=== PATIENT | male | born 1995 | race Caucasian/White ===

== ENCOUNTER 2019-08-15 23:12 | Emergency (ER) | payer BC, SELFPAY ==
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
[2019-08-15 23:40] VITALS: BP 126/96; PULSE 83; RESP 20; TEMP 36.4; O2SAT 100
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
[2019-08-16 02:05] LABS: Amphetamine Screen Urine Negative (Negative); Barbiturate Screen Urine Negative (Negative); Benzodiazepines Screen Urine Negative (Negative); Cannabinoid Screen Urine Positive (Negative); Cocaine Screen Urine Negative (Negative); Methadone Screen Urine Negative (Negative); Opiate Screen Urine Negative (Negative); Phencyclidine Screen Urine Negative (Negative)
[2019-08-16] MEDS: LORAZEPAM 0.5 MG TABLET PO (02:53)
[2019-08-16 03:01] VITALS: BP 123/67; PULSE 81; RESP 16; TEMP 37; O2SAT 100
[2019-08-16 03:07] LABS: Add Urine Microscopic? YES; Appearance Urine Clear (Clear); Bacteria Urine Trace /hpf; Bilirubin Urine Negative (Negative); Blood Urine Negative (Negative); Color Urine Yellow (Yellow); Glucose Urine UA Negative (Negative); Ketones Urine Negative (Negative); Leukocyte Esterase Ur Negative LEU/UL (Negative); Mucus Urine Moderate /lpf; Nitrate Urine Negative (Negative); Protein Urine 1+ mg/dL (Negative); RBC Urine 0-2 /hpf (0-2); Specific Grav Ur 1.027 (1.001-1.035); Urobilinogen Urine Negative mg/dL (<2.0); WBC Urine 0-3 /hpf
== END 2019-08-16 03:02 | disposition home or self-care (01) ==
PROVIDERS: Emergency Provider Emergency Medicine
DX: N50.82 Scrotal pain (principal); K21.9 Gastro-esophageal reflux disease without esophagitis
CPT/HCPCS: 76870; 80307; 81001; 93976; 99281; 99284; A9270

== ENCOUNTER 2019-08-28 13:24 | Emergency (ER) | payer BC, SELFPAY ==
[2019-08-28 13:51] VITALS: BP 136/71; PULSE 72; RESP 18; TEMP 37; O2SAT 100
--- NOTE | 2019-08-28 17:00 | ED.GENADULT ---
HPI - General Adult General Chief complaint: Unspecified <Jeffrey Moreira PA-C - Last Filed: 08/28/19 17:03> Stated complaint: headache <Jeffrey Moreira PA-C - Last Filed: 08/28/19 17:03> Time Seen by Provider: 08/28/19 16:14 <Jeffrey Moreira PA-C - Last Filed: 08/28/19 17:03> Source: patient <Jeffrey Moreira PA-C - Last Filed: 08/28/19 17:03> Mode of arrival: ambulatory <Jeffrey Moreira PA-C - Last Filed: 08/28/19 17:03> Limitations: no limitations <Jeffrey Moreira PA-C - Last Filed: 08/28/19 17:03> History of Present Illness HPI narrative: Patient is a [id number] male who presents to emergency department noting chronic low back pain managed by primary care for which he has been taking Flexeril patient notes that he is also chronically on Xanax prescribed by his psychiatrist patient with longstanding psychiatric issue and chronic pain for which she has been on Xanax patient went to outside hospital 1 day ago had negative imaging of the low back patient has also done physical therapy for this. On arrival patient requesting refill of narcotics for which he has run out. Patient denies any suicidal or homicidal ideation <Jeffrey Moreira PA-C - Last Filed: 08/28/19 17:03> Related Data Home medications: Home Medications Medication Instructions Recorded Confirmed levetiracetam 500 mg PO BID 09/19/19 <Jeffrey Moreira PA-C - Last Filed: 08/28/19 17:03> Allergies/adverse reactions: Allergies Allergy/AdvReac Type Severity Reaction Status Date / Time Cat Dander Allergy Unknown Unknown Uncoded 09/19/19 18:46 MOLD Allergy Unknown Unknown Uncoded 09/19/19 18:46 <Jeffrey Moreira PA-C - Last Filed: 08/28/19 17:03> Review of Systems Review of Systems: All systems reviewed & are unremarkable except as noted in HPI and below <Jeffrey Moreira PA-C - Last Filed: 08/28/19 17:03> PMFSH Past Medical History Medical History: Medical History Anxiety Depression GERD (gastroesophageal reflux disease) Hx of seizure disorder <Jeffrey Moreira PA-C - Last Filed: 08/28/19 17:03> Surgical History Surgical History: Surgical History History of placement of ear tubes <Jeffrey Moreira PA-C - Last Filed: 08/28/19 17:03> Social History Social History: Social History Smoking status: Smoker, status unknown Gender identity (if verbalized by the patient): Male <Jeffrey Moreira PA-C - Last Filed: 08/28/19 17:03> Exam Narrative: Exam Narrative: GENERAL: Well-appearing, well-nourished, and in no acute distress. HEAD: Normocephalic, atraumatic. EYES: PERRLA and EOMI. ENT: Nares clear, no rhinorrhea or epistaxis. Mucous membranes moist. CHEST: Clear to auscultation. No respiratory distress. No wheezes rales or rhonchi HEART: Regular rate and rhythm. No murmur heard. EXTREMITIES: Normal range of motion. No edema. SKIN: Warm, dry, no rash. NEURO: No focal deficits. Alert and oriented x3. Cranial nerves II through XII grossly intact. Normal speech and gait PSYCH: Normal mood and affect. <Jeffrey Moreira PA-C - Last Filed: 08/28/19 17:03> Course Course Emergency Course: Patient in the room in no distress aware of case findings treatment plan and diagnosis <Jeffrey Moreira PA-C - Last Filed: 08/28/19 17:03> Vital Signs Vital signs: Vital Signs Temperature 37.0 C 08/28/19 13:51 Pulse Rate 72 08/28/19 13:51 Respiratory Rate 18 08/28/19 13:51 Blood Pressure 136/71 08/28/19 13:51 Pulse Oximetry 100 08/28/19 13:51 Temperature 37.0 C 08/28/19 13:51 Pulse Rate 72 08/28/19 13:51 Respiratory Rate 18 08/28/19 13:51 Blood Pressure 136/71 08/28/19 13:51 Pulse Oximetry 100 08/28/19 13:51 <Jeffrey Moreira PA-C - Last Filed:
[2019-08-28] MEDS: LORAZEPAM 0.5 MG TABLET PO (17:11)
== END 2019-08-28 17:28 | disposition home or self-care (01) ==
PROVIDERS: Emergency Provider Emergency Medicine; PCP Chiropractor
DX: M54.5 Low back pain (principal); F41.9 Anxiety disorder, unspecified; F32.9 Major depressive disorder, single episode, unspecified; K21.9 Gastro-esophageal reflux disease without esophagitis; G40.909 Epilepsy, unspecified, not intractable, without status epilepticus; G89.29 Other chronic pain
CPT/HCPCS: 99283; A9270

== ENCOUNTER 2019-09-19 18:40 | Emergency (ER) | payer BC, SELFPAY ==
--- NOTE | ~2019-09-19 | US_ITS ---
US scrotum doppler DATE: 09/19/2019 20:24 INDICATION: Penile pain radiating to testicles since catheterization 2 weeks ago TECHNIQUE: Real-time imaging and color flow imaging of the scrotal contents COMPARISON: 08/26/2019 screening whole ultrasound FINDINGS: The testicles are homogeneous and symmetric in echotexture, with normal symmetric color keila w signal and normal Doppler signal. No testicular mass lesion or torsion is evident. The epididymis appears normal bilaterally. No hydroceles. Mild varicocele is suggested on the left. IMPRESSION: Normal testicles Mild left varicocele Reviewed, dictated and finalized at [facility]. Reviewed, dictated and finalized at location [facility].
--- NOTE | ~2019-09-19 | CT_ITS ---
EXAMINATION: CT abdomen pelvis w con DATE: 09/19/2019 20:30 INDICATION: Lower abdominal pain, testicular pain TECHNIQUE: Computed tomography (CT) of the abdomen and pelvis was performed with 100 cc Omnipaque 350 intravenous contrast. Automated exposure control and iterative reconstruction technique were employe d. Exam dose: 242.00 mGy-cm total exam DLP. COMPARISON: None. FINDINGS: The lung bases are clear. Normal heart size. No pericardial or pleural effusion. The liver, gallbladder, bile ducts, pancreas, pancreatic duct, spleen, and adrenal glands and kidneys are unremarkable. Normal caliber of the abdominal aorta. No intraperitoneal or retroperitoneal or pelvic mass lesion or adenopathy or ascites. The urinary kim dder is unremarkable. Normal appendix. No bowel obstruction or intraperitoneal free air. No acute skeletal finding. IMPRESSION: No significant abnormality Reviewed, dictated and finalized at [facility]. Reviewed, dictated and finalized at [facility]. IMPRESSION: No significant abnormality
[2019-09-19 18:48] VITALS: BP 113/63; PULSE 74; RESP 16; TEMP 37.1; O2SAT 100
--- NOTE | 2019-09-19 19:43 | ED.MALEGU ---
HPI - Male Genitourinary General Chief complaint: Urogenital-Male Stated complaint: penis pain Time Seen by Provider: 09/19/19 19:38 Source: patient Mode of arrival: EMS Limitations: no limitations History of Present Illness HPI Narrative: A 24 y/o male presents to the ED, via EMS, with c/o dysuria. Pt states that the dysuria started today while he was at work. He notes that he had a straight catheter placed 2 weeks ago to get urine to give a urine sample. Pt adds that he did not have any pain after the catheter until today. He reports testicular pain, nausea, and lower ABD pain, but denies hematuria, vomiting, and penile discharge. Pt is not sexually active. He has a PMHx of seizures and takes Keppra daily. MD Complaint: dysuria Onset (ago): hour(s) (Today) Context: other (Recent catheter) Associated symptoms: Reports nausea/vomiting and other (Testicular pain, lower ABD pain) Related Data Home Medications Medication Instructions Recorded Confirmed levetiracetam 500 mg PO BID 09/19/19 Allergies Allergy/AdvReac Type Severity Reaction Status Date / Time Cat Dander Allergy Unknown Unknown Uncoded 09/19/19 18:46 MOLD Allergy Unknown Unknown Uncoded 09/19/19 18:46 Review of Systems Review of Systems: All systems reviewed & are unremarkable except as noted in HPI and below Gastrointestinal: Gastrointestinal: Reports abdominal pain (Lower), Reports nausea and Denies vomiting Genitourinary: Genitourinary: Denies hematuria, Reports dysuria, Denies penile discharge and Reports testicular pain PMFSH Past Medical History Medical History Anxiety Depression GERD (gastroesophageal reflux disease) Hx of seizure disorder Surgical History Surgical History History of placement of ear tubes Social History Social History Smoking status: Smoker, status unknown Gender identity (if verbalized by the patient): Male Exam Narrative: Exam Narrative: General appearance: Well-developed, well-nourished Skin: Normal color Head: Normocephalic, nontraumatic Eyes: Clear conjunctiva ENT: Oropharynx normal, ears normal, nose normal Neck: Supple, nontender Chest and respiratory: Airway patent, no respiratory distress, no accessory muscle use Heart: Regular rate/rhythm Abdomen: Soft, diffuse tenderness lower abdomen bilaterally, positive guarding, no rebound no organomegaly, quiet bowel sounds, diffuse tenderness of the testicles bilaterally, no mass, no swelling or rash Vascular: Normal peripheral pulses, normal capillary refill. 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 My concern is the differential diagnosis at the bottom. Labs, CT abdomen and pelvis with IV contrast, testicular ultrasound ordered. Further plan to follow Differential Diagnosis Differential diagnosis: Likely urinary tract infection, urethritis, epidid
[2019-09-19 19:49] LABS: Add Urine Microscopic? YES; Appearance Urine Cloudy (Clear); Bacteria Urine Trace /hpf; Bilirubin Urine Negative (Negative); Blood Urine Negative (Negative); Color Urine Straw (Yellow); Glucose Urine UA Negative (Negative); Ketones Urine Negative (Negative); Leukocyte Esterase Ur Negative LEU/UL (Negative); Mucus Urine Rare /lpf; Nitrate Urine Negative (Negative); Protein Urine Negative (Negative); Specific Grav Ur 1.018 (1.001-1.035); Urobilinogen Urine Negative mg/dL (<2.0); WBC Urine 0-3 /hpf
[2019-09-19 20:13] LABS: Basophils Percent Auto 0.1 % (0.2-1.2); Eosinophils Absolute Auto 0.2 K/mm3 (0-0.3); Eosinophils Percent Auto 2.2 % (0-4.4); Hematocrit 43.1 % (42.0-52.0); Hemoglobin 14.2 g/dL (14.0-18.0); Immature Granulocyte Absolute 0.01 K/mm3 (0.00-0.031); Immature Granulocyte Percent A 0.1 % (0-0.5); Lymphocytes Absolute Auto 2.63 K/mm3 (0.9-3.2); Lymphocytes Percent Auto 38.6 % (18.3-44.2); Mean Corpuscular HGB Conc 32.9 g/dl (32-36); Mean Corpuscular Hemoglobin 31.3 pg (26-34); Mean Corpuscular Volume 95.1 fl (80-100); Monocytes Absolute Auto 0.6 K/mm3 (0.1-0.6); Monocytes Percent Auto 8.5 % (2.6-8.5); Neutrophils Absolute Auto 3.4 K/mm3 (1.3-6.7); Neutrophils Percent Auto 50.5 % (45.5-73.1); Platelet Count Result 182 k/mm3 (150-375); Red Blood Count 4.53 M/mm3 (4.6-6.20); White Blood Count 6.8 K/mm3 (4.5-10.0)
[2019-09-19 20:25] LABS: Estimated CRCL calculation 120 ml/min; Estimated Glomerular Filt Rate > 60
[2019-09-19 20:26] LABS: Alanine Aminotransferase 21 U/L (4-50); Albumin Level 4.2 g/dL (3.5-5.1); Alkaline Phosphatase 69 U/L (38-126); Aspartate Amino Transferase 24 U/L (17-59); Bilirubin,Total 0.2 mg/dL (0.2-1.3); Blood Urea Nitrogen 24 mg/dL (9-20); Calcium 9.2 mg/dL (8.4-10.2); Carbon Dioxide 25 mmol/L (22-30); Chloride 105 mmol/L (98-107); Estimated CRCL calculation 133 ml/min; Estimated Glomerular Filt Rate > 60; Glucose 92 mg/dL (75-110); Lipase 112 U/L (23-300); Potassium 3.6 mmol/L (3.4-5.0); Sodium 139 mmol/L (137-145)
[2019-09-19] MEDS: KETOROLAC 30 MG/ML VIAL (*BKC) IV PUSH (20:36)
[2019-09-19] MEDS: LORAZEPAM 0.5 MG TABLET 1 MG PO (21:49)
== END 2019-09-19 21:50 | disposition home or self-care (01) ==
PROVIDERS: Emergency Provider Emergency Medicine; PCP Chiropractor
DX: N50.82 Scrotal pain (principal); N50.812 Left testicular pain; R10.30 Lower abdominal pain, unspecified; G40.909 Epilepsy, unspecified, not intractable, without status epilepticus; K21.9 Gastro-esophageal reflux disease without esophagitis; I86.1 Scrotal varices
CPT/HCPCS: 36415; 74177; 76870; 80053; 81001; 83690; 85025; 93976; 96374; 99284; A9270; J1885; Q9967

== ENCOUNTER 2020-11-01 15:31 | Emergency (ER) | payer BC, SELFPAY ==
--- NOTE | ~2020-11-01 | CT_ITS ---
EXAMINATION: CT brain wo con EXAM DATE: 11/01/2020 16:51 INDICATION: Head injury without loss of consciousness. TECHNIQUE: Spiral CT of the head was performed without contrast. Axial, coronal and sagittal images were reviewed. The dose-length product (DLP) for this examination was 605.33 mGy-cm. The exposure w as tailored according to patient size, and iterative reconstruction (ASIR) was used as additional dos e reduction technique. Comparison is made to prior examination from 03/21/2016. FINDINGS: There is no acute intraparenchymal hemorrhage. No evidence of intraparenchymal brain mass lesion. No evidence of acute infarction. There is no mass effect or midline shift. The ventricles are normal in size. There are no extra-axial collections. There are no acute calvarial fractures. T he orbits are unremarkable. Soft tissue is unremarkable. The visualized sinuses and mastoid air radha ls are well aerated. IMPRESSION: 1. No acute intracranial findings. Reviewed, dictated and finalized at location [facility].
[2020-11-01 15:40] VITALS: BP 128/80; PULSE 63; RESP 17; TEMP 36.3; O2SAT 100
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
== END 2020-11-01 17:36 | disposition home or self-care (01) ==
PROVIDERS: Emergency Provider Emergency Medicine; PCP Internal Medicine Gastroenterology
DX: S06.0X0A Concussion without loss of consciousness, initial encounter (principal); G40.909 Epilepsy, unspecified, not intractable, without status epilepticus; K21.9 Gastro-esophageal reflux disease without esophagitis; Y04.0XXA Assault by unarmed brawl or fight, initial encounter
CPT/HCPCS: 70450; 99284

== ENCOUNTER 2020-12-11 12:03 | Emergency (ER) | payer BC, SELFPAY ==
--- NOTE | 2020-12-11 12:07 | ED.GENADULT ---
HPI - General Adult General Chief complaint: Recheck/Abnormal Lab/Rx Stated complaint: refill Time Seen by Provider: 12/11/20 12:07 Source: patient and RN notes reviewed Mode of arrival: ambulatory Limitations: no limitations History of Present Illness HPI narrative: 25 yo male with a HX of seizures presents to the [facility] requesting a refill of his Keppra. States that the Neurologist told him he can take between 750 and 1000 mg as needed. last fill was November 20 for Keppra 750 1 BID for a 30 day supply. Patient states that he does not have an appointment with Neuro until next month, Unsure of date. Reports being totally out of medication. Discussed with patient that this will be a one time occurrence and we will give him enough for 5 days so he can call his doctor for refills. No other complaints at this time. Related Data Home Medications Medication Instructions Recorded Confirmed levetiracetam 500 mg PO BID 09/19/19 alprazolam 12/11/20 escitalopram oxalate mg 12/11/20 mirtazapine mg 12/11/20 Allergies Allergy/AdvReac Type Severity Reaction Status Date / Time Cat Dander Allergy Unknown Unknown Uncoded 11/01/20 15:59 MOLD Allergy Unknown Unknown Uncoded 11/01/20 15:59 Review of Systems Review of Systems: All systems reviewed & are unremarkable except as noted in HPI and below Constitutional: Constitutional: Reports no additional constitutional complaints Eyes: Eyes: Reports no additional eye complaints ENT: Reports system reviewed and no additional complaints, except as documented Cardiovascular: Cardiovascular: Reports no additional cardiovascular complaints Respiratory: Respiratory: Reports no additional respiratory complaints Gastrointestinal: Gastrointestinal: Reports no additional gastrointestinal complaints Musculoskeletal: Musculoskeletal: Reports no additional musculoskeletal complaints Integumentary/Breasts: Skin/Breast: Reports system reviewed and no additional complaints, except as docu Neurologic: Reports system reviewed and no additional complaints, except as documented Psychiatric: Psychiatric: Reports no additional psychiatric complaints PMFSH Past Medical History Medical History Anxiety Depression GERD (gastroesophageal reflux disease) Hx of seizure disorder Surgical History Surgical History History of placement of ear tubes Social History Social History Smoking status: Smoker, status unknown Gender identity (if verbalized by the patient): Male Comments At the time of my signature, I reviewed and agree with the nursing past medical, surgical, social, and family history. There is no relevant family history pertinent to the patient complaint. Exam Const: General: healthy appearing, no acute distress and alert Nutritional Appearance: well nourished Orientation/consciousness: patient oriented x3 Limitations: no limitations HENMT: Head: normal to inspection Eyes: Conjunctivae: conjunctivae normal Pupils: Equal, round and reactive pupils present Neck: Neck: normal visual inspection, no lymphadenopathy and no meningeal signs Resp: Effort & Inspection: normal respiratory effort and no use of accessory muscles Auscultation: clear to auscultation bilaterally, no crackles, no rales, no rhonchi and no wheezes Cardio: Rate: regular rate Rhythm: regular rhythm Skin: General skin exam: normal color Rashes: no rashes Neuro: General: patient oriented x3, moves all extremities and no meningeal signs Speech: normal speech Gait exam (Neuro): Normal gait present Extrem: General: normal to inspection and no pedal edema Psych: Appearance: grossly normal and well kempt Mental Status: mental status grossly normal Affect: normal affect Attitude: cooperative Thought content: Yes Normal thought content present Course Course
[2020-12-11 12:09] VITALS: BP 110/69; PULSE 87; RESP 16; TEMP 37.2; O2SAT 100
[2020-12-11 12:19] VITALS: BP 110/69; PULSE 87; RESP 16; TEMP 37.2; O2SAT 100
== END 2020-12-11 12:20 | disposition home or self-care (01) ==
PROVIDERS: Emergency Provider Nurse Practitioner; PCP Internal Medicine Gastroenterology
DX: Z76.0 Encounter for issue of repeat prescription (principal); G40.909 Epilepsy, unspecified, not intractable, without status epilepticus; K21.9 Gastro-esophageal reflux disease without esophagitis
CPT/HCPCS: 99212; G0463

== ENCOUNTER 2021-02-23 16:52 | Emergency (ER) | payer BC, SELFPAY ==
[2021-02-23 17:20] VITALS: BP 121/74; PULSE 94; RESP 18; TEMP 36.9; O2SAT 96
--- NOTE | 2021-02-23 17:56 | PC.NURSE ---
pt asking RN if we are able to provide him a dose of his seizure medication while he waits because his medication is at home and he doesn't have anyone to bring it to him. pt informed we are unable to dispense medication without them being seen by a provider first. after some contemplation, pt decided he will leave without being seen. pt amb out of ed with steady gait and in no acute distress.
== END 2021-02-23 17:56 | disposition left against medical advice (07) ==
DX: M54.9 Dorsalgia, unspecified (principal)
CPT/HCPCS: 99199

== ENCOUNTER 2021-02-24 08:21 | Emergency (ER) | payer OTHER, BC, SELFPAY ==
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
[2021-02-24 08:24] VITALS: BP 111/74; PULSE 87; RESP 16; TEMP 36.6; O2SAT 98
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
[2021-02-24 10:43] VITALS: BP 118/86; PULSE 80; RESP 20; O2SAT 99
== END 2021-02-24 10:45 | disposition home or self-care (01) ==
PROVIDERS: Emergency Provider Emergency Medicine; PCP Internal Medicine Gastroenterology
DX: S29.012A Strain of muscle and tendon of back wall of thorax, initial encounter (principal); W31.89XA Contact with other specified machinery, initial encounter
CPT/HCPCS: 72125; 72128; 72131; 99284

== ENCOUNTER 2022-05-28 17:52 | Outpatient (CLI) | payer BC, SELFPAY ==
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
== END 2022-05-28 17:53 | disposition home or self-care (01) ==
LOC: ANHIMG 17:55
PROVIDERS: PCP Internal Medicine Gastroenterology
DX: G40.309 Generalized idiopathic epilepsy and epileptic syndromes, not intractable, without status epilepticus (principal); F41.1 Generalized anxiety disorder
CPT/HCPCS: 70450

== ENCOUNTER 2022-06-06 17:46 | Outpatient (CLI) | payer BC, SELFPAY ==
[2022-06-09 10:02] LABS: Levetiracetam Keppra 56.5 mcg/mL (6.0-46.0)
== END 2022-06-06 17:47 | disposition home or self-care (01) ==
PROVIDERS: PCP Internal Medicine Gastroenterology
DX: Z51.81 Encounter for therapeutic drug level monitoring (principal); Z79.899 Other long term (current) drug therapy
CPT/HCPCS: 36415; 80177

== ENCOUNTER 2022-06-06 20:44 | Emergency (ER) | payer BC, SELFPAY ==
[2022-06-06 20:57] VITALS: BP 123/78; PULSE 60; RESP 16; TEMP 36.4; O2SAT 97
[2022-06-06 21:51] LABS: Influenza A QL RT-PCR Negative (Negative); Influenza B QL RT-PCR Negative (Negative); SARS-CoV-2 RNA PCR Negative
--- NOTE | 2022-06-06 23:01 | PC.NURSE ---
attempted lab draw times two patient states he is to exhausted to have more blood draws
--- NOTE | 2022-06-06 23:27 | ED.GENADULT ---
HPI - General Adult General Chief complaint: Nausea/Vomiting/Diarrhea Stated complaint: n/v, withdrawl from xanax Time Seen by Provider: 06/06/22 23:09 History of Present Illness HPI narrative: Patient is a 27-year-old male here for evaluation of multiple medical complaints. Patient states that he has been nauseated and has had several episodes of vomiting over the past 2 days. He tells me that he takes Xanax as needed for anxiety but has been chronically taking more than he is prescribed to get high. He is not suicidal or homicidal. Patient states he ran out of Xanax 2 days ago and since then has been feeling unwell with nausea and vomiting. Patient also tells me he has a history of epilepsy, on Keppra, which he also tells me he takes more than prescribed to also get high. he saw his neurologist today who changed the dosage, has not had a seizure in a while . Last seizure was due to noncompliance with Keppra. He is not suicidal or homicidal, denies ingestions tonight, denies history of withdrawal seizures. Related Data Home Medications Medication Instructions Recorded Confirmed levetiracetam 500 mg tablet 500 mg PO BID 09/19/19 05/30/22 alprazolam 0.5 mg tablet 12/11/20 05/30/22 escitalopram oxalate 20 mg tablet mg 12/11/20 05/30/22 mirtazapine 45 mg tablet mg 12/11/20 05/30/22 Allergies Allergy/AdvReac Type Severity Reaction Status Date / Time Cat Dander Allergy Unknown Unknown Uncoded 05/30/22 13:26 MOLD Allergy Unknown Unknown Uncoded 05/30/22 13:26 Review of Systems Review of Systems: Gen.: Denies fevers or chills Eyes: Denies eye pain or visual change ENT: Denies congestion Respiratory: Denies shortness of breath or cough CV: Denies chest pain or palpitations GI: Reports nausea and vomiting. Denies abdominal pain or diarrhea denies burning, urgency, frequency or hematuria Musculoskeletal: Denies back pain or muscle pain Neuro: Denies numbness, tingling, weakness or focal weakness Skin: Denies rash Except as documented, all other systems reviewed and negative PMFSH Past Medical History Medical History Anxiety Depression GERD (gastroesophageal reflux disease) GERD with esophagitis Hiatal hernia Hx of seizure disorder Hx of upper gastrointestinal hemorrhage Marijuana use Obesity Surgical History Surgical History History of placement of ear tubes Social History Social History Smoking status: Never smoker Gender identity (if verbalized by the patient): Male Exam Narrative: APPEARANCE: Well appearing, no pain in distress, well-nourished. Head: Normocephalic and atraumatic. EYES: PERRLA/EOMI, conjunctivae clear NOSE: No nasal drainage EARS: External ear normal in appearance THROAT: Oropharynx is clear. Mucous membranes are moist. NECK: Supple. No adenopathy, no masses. RESPIRATORY: Airway patent, respirations nonlabored. Clear to auscultation bilaterally, no rales, rhonchi, wheezing. CARDIOVASCULAR: Regular rate and rhythm without murmurs, rubs, or gallops. ABDOMINAL: Normoactive bowel sounds. Soft, nontender, nondistended. No rebound tenderness or guarding. MUSCULOSKELETAL: Extremities are warm and well-perfused. Moves all extremities well. No edema. NEURO: Normal speech. No focal neurologic deficits. SKIN: Skin is warm and dry. No rashes. PSYCHIATRIC: Normal affect/mood.. Course Vital Signs Vital signs: Vital Signs Temperature 97.6 F 06/06/22 20:57 Pulse Rate 60 06/06/22 20:57 Respiratory Rate 16 06/06/22 20:57 Blood Pressure 123/78 06/06/22 20:57 Pulse Oximetry 97 06/06/22 20:57 Oxygen Delivery Room Air 06/06/22 20:57 Temperature 97.6 F 06/06/22 20:57 Pulse Rate 68 06/07/22 00:30 Respiratory Rate 16 06/07/22 00:30 Blood Pressure 96/59 L 06/07/22 01:16 Pulse Oximetr
[2022-06-06 23:50] VITALS: PULSE 62; RESP 15; O2SAT 100
[2022-06-06] MEDS: ONDANSETRON INJ 4 MG/2 ML VIAL IV PUSH (23:52)
[2022-06-06] MEDS: FAMOTIDINE 20 MG/2 ML VIAL IV PUSH (23:53)
[2022-06-06] MEDS: SODIUM CHLORIDE 0.9% IV 1,000 ML 999 ML IV CONT (23:58)
[2022-06-07] VITALS (8 sets, daily range): BP systolic 94–120; BP diastolic 58–73; PULSE 63–70; RESP 14–16; O2SAT 100
[2022-06-07 00:10] LABS: Mucus Urine Rare /lpf; RBC Urine 0-2 /hpf (0-2)
[2022-06-07 00:26] LABS: Appearance Urine Clear (Clear); Bilirubin Urine Negative (Negative); Blood Urine Trace-intact (Negative); Glucose Urine UA Negative (Negative); Ketones Urine Negative (Negative); Leukocyte Esterase Ur Negative LEU/UL (Negative); Nitrate Urine Negative (Negative); Protein Urine Negative (Negative); Specific Grav Ur <= 1.005 (1.001-1.035); Urobilinogen Urine 0.2 mg/dL (<2.0); pH Urine 5.5 (5.0-9.0)
[2022-06-07 00:32] LABS: Add Urine Microscopic? YES; Color Urine Light Yellow (Yellow)
[2022-06-07 00:35] LABS: Basophils Percent Auto 0.2 % (0.2-1.2); Eosinophils Absolute Auto 0.1 K/mm3 (0-0.3); Eosinophils Percent Auto 0.9 % (0-4.4); Hematocrit 43.9 % (42.0-52.0); Hemoglobin 14.4 g/dL (14.0-18.0); Immature Granulocyte Absolute 0.04 K/mm3 (0.00-0.031); Immature Granulocyte Percent A 0.4 % (0-0.5); Lymphocytes Absolute Auto 1.65 K/mm3 (0.9-3.2); Lymphocytes Percent Auto 16.2 % (18.3-44.2); Mean Corpuscular HGB Conc 32.8 g/dl (32-36); Mean Corpuscular Hemoglobin 31.9 pg (26-34); Mean Corpuscular Volume 97.3 fl (80-100); Mean Platelet Volume 10.2 fl (7.4-10.4); Monocytes Absolute Auto 0.6 K/mm3 (0.1-0.6); Monocytes Percent Auto 5.9 % (2.6-8.5); Neutrophils Absolute Auto 7.8 K/mm3 (1.3-6.7); Neutrophils Percent Auto 76.4 % (45.5-73.1); Platelet Count Result 175 k/mm3 (150-375); Red Blood Count 4.51 M/mm3 (4.6-6.20); Red Cell Distribution Width 12.8 % (11.5-14.5); White Blood Count 10.2 K/mm3 (4.5-10.0)
[2022-06-07 00:47] LABS: Alanine Aminotransferase 32 U/L (6-50); Albumin Level 4.1 g/dL (3.5-5.1); Alkaline Phosphatase 115 U/L (38-126); Anion Gap 9 mmol/L (8-16); Aspartate Amino Transferase 32 U/L (17-59); Bilirubin,Total 0.4 mg/dL (0.2-1.3); Blood Urea Nitrogen 16 mg/dL (9-20); Calcium 8.6 mg/dL (8.4-10.2); Carbon Dioxide 21 mmol/L (22-30); Chloride 109 mmol/L (98-107); Estimated CRCL calculation 151 ml/min; Estimated Glomerular Filt Rate > 60; Glucose 99 mg/dL (65-110); Lipase 44 U/L (23-300); Potassium 4.2 mmol/L (3.4-5.0); Sodium 139 mmol/L (137-145)
[2022-06-07] MEDS: chlordiazePOXIDE (*CRX) 5 MG CAPSULE PO (01:22)
[2022-06-10 17:11] LABS: Levetiracetam Keppra 43.7 mcg/mL (6.0-46.0)
== END 2022-06-07 02:07 | disposition home or self-care (01) ==
PROVIDERS: Emergency Medicine; Physician Assistant; Emergency Provider Emergency Medicine; PCP Internal Medicine Gastroenterology
DX: R11.2 Nausea with vomiting, unspecified (principal); Z20.822 Contact with and (suspected) exposure to COVID-19; G40.909 Epilepsy, unspecified, not intractable, without status epilepticus; F41.9 Anxiety disorder, unspecified; F32.A Depression, unspecified; K21.9 Gastro-esophageal reflux disease without esophagitis
CPT/HCPCS: 36415; 80053; 80177; 81001; 83690; 85025; 87636; 96374; 96375; 99284; A9270; J2405; J7030

== ENCOUNTER 2022-11-16 15:49 | Outpatient (CLI) | payer SELFPAY ==
--- NOTE | ~2022-11-16 | XR_ITS ---
EXAMINATION: XR foot LT min 3V DATE: 11/16/2022 16:12 INDICATION: Left foot pain. TECHNIQUE: 4 views of left foot were obtained. COMPARISON: None. FINDINGS: There is mild hallux valgus. No fracture. There is mild osteoarthritis of first metatarsoph alangeal joint. There is an enthesophyte at plantar aspect of calcaneal tuberosity. IMPRESSION: 1. Mild hallux valgus. 2. Mild osteoarthritis of first metatarsophalangeal joint. Reviewed, dictated and finalized at location E.
== END 2022-11-16 15:50 | disposition home or self-care (01) ==
PROVIDERS: PCP Internal Medicine Gastroenterology; Visit Provider Internal Medicine Gastroenterology
DX: M20.12 Hallux valgus (acquired), left foot (principal); M19.072 Primary osteoarthritis, left ankle and foot
CPT/HCPCS: 73630

== ENCOUNTER 2023-03-06 17:10 | Outpatient (CLI) | payer SELFPAY ==
[2023-03-06 17:54] LABS: Basophils Percent Auto 0.4 % (0.2-1.2); Eosinophils Absolute Auto 0.3 K/mm3 (0-0.3); Eosinophils Percent Auto 3.1 % (0-4.4); Hematocrit 42.2 % (42.0-52.0); Immature Granulocyte Absolute 0.04 K/mm3 (0.00-0.031); Immature Granulocyte Percent A 0.5 % (0-0.5); Lymphocytes Absolute Auto 2.75 K/mm3 (0.9-3.2); Lymphocytes Percent Auto 34.4 % (18.3-44.2); Mean Corpuscular HGB Conc 33.2 g/dl (32-36); Mean Corpuscular Volume 96.3 fl (80-100); Mean Platelet Volume 10.7 fl (7.4-10.4); Monocytes Absolute Auto 0.8 K/mm3 (0.1-0.6); Monocytes Percent Auto 9.8 % (2.6-8.5); Neutrophils Absolute Auto 4.1 K/mm3 (1.3-6.7); Neutrophils Percent Auto 51.8 % (45.5-73.1); Platelet Count Result 192 k/mm3 (150-375); Red Blood Count 4.38 M/mm3 (4.6-6.20); Red Cell Distribution Width 12.7 % (11.5-14.5)
[2023-03-06 18:13] LABS: Alanine Aminotransferase 57 U/L (6-50); Albumin Level 4.2 g/dL (3.5-5.1); Alkaline Phosphatase 83 U/L (38-126); Anion Gap 8 mmol/L (8-16); Aspartate Amino Transferase 63 U/L (17-59); Bilirubin,Total 0.5 mg/dL (0.2-1.3); Blood Urea Nitrogen 25 mg/dL (9-20); Carbon Dioxide 23 mmol/L (22-30); Chloride 105 mmol/L (98-107); Estimated Glomerular Filt Rate > 60; Glucose 88 mg/dL (65-110); Potassium 3.9 mmol/L (3.4-5.0); Sodium 136 mmol/L (137-145)
[2023-03-06 18:16] LABS: Rheumatoid Factor < 12.0 IU/ML (<12)
[2023-03-06 18:23] LABS: Free T4 Free Thyroxine 1.17 ng/mL (0.78-2.19)
[2023-03-06 18:41] LABS: Erythrocyte Sedimentation Rate 9 mm/hr (0-20)
[2023-03-06 19:19] LABS: Folic Acid 11.8 ng/mL (2.76->20)
[2023-03-13 06:06] LABS: Anti Nuclear Antibody Titer 1:40 (Negative)
== END 2023-03-06 17:11 | disposition home or self-care (01) ==
PROVIDERS: PCP Internal Medicine Gastroenterology; Visit Provider Internal Medicine Gastroenterology
DX: M25.50 Pain in unspecified joint (principal); R53.83 Other fatigue
CPT/HCPCS: 36415; 80053; 82607; 82746; 84439; 84443; 85025; 85652; 86038; 86039; 86430

== ENCOUNTER 2023-03-13 16:31 | Outpatient (CLI) | payer SELFPAY ==
--- NOTE | ~2023-03-13 | XR_ITS ---
Clinical Indication: Cough PA and lateral views of the chest: Comparison: 10/18/2017 Findings: The lungs are clear, without evidence of focal consolidation or pleural effusion. Cardiome diastinal silhouette is within normal limits. Bones and soft tissues are unremarkable. Impression: Normal chest. Reviewed, dictated and finalized at [facility]. Impression: Normal chest.
== END 2023-03-13 16:32 | disposition home or self-care (01) ==
LOC: ANHIMG 16:33
PROVIDERS: PCP Internal Medicine Gastroenterology; Visit Provider Internal Medicine Gastroenterology
DX: R05.9 Cough, unspecified (principal)
CPT/HCPCS: 71046

== ENCOUNTER 2023-08-14 16:56 | Outpatient (CLI) | payer BC, SELFPAY ==
[2023-08-14 17:34] LABS: Hematocrit 43.9 % (42.0-52.0); Hemoglobin 13.9 g/dL (14.0-18.0); Immature Platelet Fraction Pct 12.8 % (0.9-11.2); Mean Corpuscular HGB Conc 31.7 g/dl (32-36); Mean Corpuscular Hemoglobin 32.3 pg (26-34); Mean Corpuscular Volume 102.1 fl (80-100); Mean Platelet Volume 12.2 fl (7.4-10.4); Platelet Count Result 87 k/mm3 (150-375); White Blood Count 7.8 K/mm3 (4.5-10.0)
[2023-08-14 18:27] LABS: Erythrocyte Sedimentation Rate 3 mm/hr (0-20)
[2023-08-14 19:13] LABS: Alanine Aminotransferase 45 U/L (6-50); Albumin Level 4.1 g/dL (3.5-5.1); Alkaline Phosphatase 68 U/L (38-126); Anion Gap 8 mmol/L (8-16); Aspartate Amino Transferase 42 U/L (17-59); Bilirubin,Total 0.7 mg/dL (0.2-1.3); Blood Urea Nitrogen 18 mg/dL (9-20); CRP < 0.5 mg/dL (<1.0); Calcium 9.4 mg/dL (8.4-10.2); Carbon Dioxide 28 mmol/L (22-30); Chloride 105 mmol/L (98-107); Estimated Glomerular Filt Rate > 60; Glucose 96 mg/dL (65-110); Lipase 68 U/L (23-300); Potassium 3.8 mmol/L (3.4-5.0); Sodium 141 mmol/L (137-145)
[2023-08-14 19:45] LABS: Hepatitis B Surface Antigen Negative (Negative)
[2023-08-14 19:51] LABS: HAV RESULT Negative (Negative); Hepatitis B Core IgM Result Negative (Negative)
[2023-08-14 20:02] LABS: Hepatitis C Virus Antibody Negative (Negative)
[2023-08-17 21:50] LABS: Mitochondrial (M2) Ab (IgG) <=20.0 U (<=20.0)
[2023-08-18 22:52] LABS: Immunoglobulin A 143 mg/dL (47-310); TTG IGA AB <1.0 U/mL (<15.0)
[2023-08-20 05:49] LABS: LKM 1 Antibody <=20.0 U (<=20.0)
[2023-08-21 12:43] LABS: Actin Antibody (IgG) <20 U (<20)
== END 2023-08-14 16:57 | disposition home or self-care (01) ==
LOC: ANHLAB 16:58
PROVIDERS: PCP Internal Medicine Gastroenterology; Visit Provider Nurse Practitioner
DX: R74.8 Abnormal levels of other serum enzymes (principal); R76.8 Other specified abnormal immunological findings in serum; F41.9 Anxiety disorder, unspecified; K21.00 Gastro-esophageal reflux disease with esophagitis, without bleeding; K30 Functional dyspepsia; K44.9 Diaphragmatic hernia without obstruction or gangrene; K74.60 Unspecified cirrhosis of liver; Z87.19 Personal history of other diseases of the digestive system
CPT/HCPCS: 36415; 80053; 80074; 82784; 83520; 83690; 84443; 85027; 85055; 85652; 86038; 86140; 86364; 86376

== ENCOUNTER 2023-08-24 09:07 | Outpatient (CLI) | payer BC, SELFPAY ==
[2023-08-24 09:53] LABS: Basophils Percent Auto 0.2 % (0.2-1.2); Eosinophils Absolute Auto 0.1 K/mm3 (0-0.3); Eosinophils Percent Auto 2.4 % (0-4.4); Hematocrit 44.5 % (42.0-52.0); Hemoglobin 14.3 g/dL (14.0-18.0); Immature Platelet Fraction Pct 10.1 % (0.9-11.2); Lymphocytes Absolute Auto 2.01 K/mm3 (0.9-3.2); Lymphocytes Percent Auto 37.6 % (18.3-44.2); Mean Corpuscular HGB Conc 32.1 g/dl (32-36); Mean Corpuscular Hemoglobin 32.8 pg (26-34); Mean Corpuscular Volume 102.1 fl (80-100); Mean Platelet Volume 11.5 fl (7.4-10.4); Monocytes Absolute Auto 0.7 K/mm3 (0.1-0.6); Monocytes Percent Auto 12.1 % (2.6-8.5); Neutrophils Absolute Auto 2.6 K/mm3 (1.3-6.7); Neutrophils Percent Auto 47.7 % (45.5-73.1); Platelet Count Result 94 k/mm3 (150-375); Red Blood Count 4.36 M/mm3 (4.6-6.20); Red Cell Distribution Width 12.8 % (11.5-14.5); White Blood Count 5.4 K/mm3 (4.5-10.0)
== END 2023-08-24 09:08 | disposition home or self-care (01) ==
LOC: ANHLAB 09:08
PROVIDERS: PCP Student in an Organized Health Care Education/Training Program; Visit Provider Nurse Practitioner
DX: D69.6 Thrombocytopenia, unspecified (principal)
CPT/HCPCS: 36415; 85025; 85055

== ENCOUNTER 2023-08-26 15:55 | Outpatient (CLI) | payer BC, SELFPAY ==
[2023-08-26 16:21] LABS: Basophils Percent Auto 0.3 % (0.2-1.2); Eosinophils Absolute Auto 0.2 K/mm3 (0-0.3); Eosinophils Percent Auto 3.1 % (0-4.4); Hematocrit 44.1 % (42.0-52.0); Immature Granulocyte Absolute 0.01 K/mm3 (0.00-0.031); Immature Granulocyte Percent A 0.2 % (0-0.5); Lymphocytes Absolute Auto 2.45 K/mm3 (0.9-3.2); Lymphocytes Percent Auto 40.4 % (18.3-44.2); Mean Corpuscular HGB Conc 31.7 g/dl (32-36); Mean Corpuscular Hemoglobin 32.4 pg (26-34); Mean Corpuscular Volume 102.1 fl (80-100); Mean Platelet Volume 11.7 fl (7.4-10.4); Monocytes Absolute Auto 0.6 K/mm3 (0.1-0.6); Monocytes Percent Auto 9.6 % (2.6-8.5); Neutrophils Absolute Auto 2.8 K/mm3 (1.3-6.7); Neutrophils Percent Auto 46.4 % (45.5-73.1); Platelet Count Result 115 k/mm3 (150-375); Red Blood Count 4.32 M/mm3 (4.6-6.20); Red Cell Distribution Width 12.9 % (11.5-14.5); White Blood Count 6.1 K/mm3 (4.5-10.0)
[2023-08-26 17:13] LABS: HIV 1/2 Ab P24 Ag Result Negative (Negative)
[2023-08-26 17:20] LABS: Hepatitis C Virus Antibody Negative (Negative)
[2023-08-26 17:38] LABS: Folic Acid 7.9 ng/mL (2.76->20)
== END 2023-08-26 15:56 | disposition home or self-care (01) ==
LOC: ANHLAB 15:58
PROVIDERS: PCP Student in an Organized Health Care Education/Training Program; Visit Provider Anesthesiology
DX: D69.6 Thrombocytopenia, unspecified (principal)
CPT/HCPCS: 36415; 82607; 82746; 85025; 86703; 86803; G0432

== ENCOUNTER 2023-08-29 08:13 | Outpatient (CLI) | payer BC, SELFPAY ==
--- NOTE | ~2023-08-29 | US_ITS ---
Limited Abdominal Sonogram: Real-time sonographic imaging of the right upper quadrant was performed. Clinical History: Epigastric pain Findings: The liver appears normal with no evidence of mass lesion or bile duct dilatation. Main por homero vein demonstrates normal direction of flow. The gallbladder is well distended, and appears normal with no evidence of gallstone or wall thickening. The common bile duct measures 3 mm. The visualize d pancreas, aorta, and IVC are unremarkable. Impression: No significant abnormality seen. Reviewed, dictated and finalized at location M. EL WATERER Impression: No significant abnormality seen.
== END 2023-08-29 08:14 | disposition home or self-care (01) ==
LOC: ANHIMG 08:14
PROVIDERS: PCP Student in an Organized Health Care Education/Training Program; Visit Provider Nurse Practitioner
DX: K21.00 Gastro-esophageal reflux disease with esophagitis, without bleeding (principal); R10.13 Epigastric pain
CPT/HCPCS: 76705

== ENCOUNTER 2023-09-07 07:40 | Outpatient (CLI) | payer BC, SELFPAY ==
--- NOTE | ~2023-09-07 | US_ITS ---
EXAMINATION: US abdomen complete DATE: 09/07/2023 09:08 INDICATION: THROMBOCYTOPENIA TECHNIQUE: Multiple grayscale and Doppler ultrasound images of the abdomen were obtained. COMPARISON: None available. FINDINGS: The visualized portions of the pancreas are normal. Increased liver echogenicity. No surfac e nodularity. Normal hepatopetal flow in the main portal vein. The gallbladder is normal with no abno rmal wall thickening, pericholecystic fluid or stones. The common bile duct measures 4 mm. There was no sonographic Merritt sign. The visualized portions of the aorta and inferior vena cava are normal. The right kidney measures 10.0 x 4.2 x 5.6 cm. The left kidney measures 11.6 x 5.3 x 5.0 cm. The kidn eys demonstrate normal parenchymal echogenicity. There is no hydronephrosis. The spleen is normal in appearance and measures 9.5 cm. IMPRESSION: Echogenic liver, most commonly due to steatosis but also can be seen with hepatitis and fibrosis. Reviewed, dictated and finalized at location K. [employer] IMPRESSION: Echogenic liver, most commonly due to steatosis but also can be seen with hepat itis and fibrosis.
== END 2023-09-07 07:41 | disposition home or self-care (01) ==
LOC: ANHIMG 07:43
PROVIDERS: PCP Student in an Organized Health Care Education/Training Program; Visit Provider Student in an Organized Health Care Education/Training Program
DX: D69.6 Thrombocytopenia, unspecified (principal); R93.2 Abnormal findings on diagnostic imaging of liver and biliary tract
CPT/HCPCS: 76700

== ENCOUNTER 2023-09-23 15:23 | Outpatient (CLI) | payer BC, SELFPAY ==
[2023-09-23 15:51] LABS: Basophils Percent Auto 0.3 % (0.2-1.2); Eosinophils Absolute Auto 0.2 K/mm3 (0-0.3); Eosinophils Percent Auto 2.1 % (0-4.4); Hematocrit 43.3 % (42.0-52.0); Hemoglobin 13.9 g/dL (14.0-18.0); Immature Granulocyte Absolute 0.03 K/mm3 (0.00-0.031); Immature Granulocyte Percent A 0.4 % (0-0.5); Immature Platelet Fraction Pct 9.4 % (0.9-11.2); Lymphocytes Absolute Auto 3.07 K/mm3 (0.9-3.2); Lymphocytes Percent Auto 43.9 % (18.3-44.2); Mean Corpuscular HGB Conc 32.1 g/dl (32-36); Mean Corpuscular Hemoglobin 32.7 pg (26-34); Mean Corpuscular Volume 101.9 fl (80-100); Mean Platelet Volume 11.7 fl (7.4-10.4); Monocytes Absolute Auto 0.6 K/mm3 (0.1-0.6); Monocytes Percent Auto 8.7 % (2.6-8.5); Neutrophils Absolute Auto 3.1 K/mm3 (1.3-6.7); Neutrophils Percent Auto 44.6 % (45.5-73.1); Platelet Count Result 105 k/mm3 (150-375); Red Blood Count 4.25 M/mm3 (4.6-6.20)
[2023-09-23 16:31] LABS: Iron 122 ug/dL (49-181)
[2023-09-23 16:33] LABS: Alanine Aminotransferase 49 U/L (6-50); Albumin Level 4.3 g/dL (3.5-5.1); Alkaline Phosphatase 69 U/L (38-126); Anion Gap 3 mmol/L (8-16); Aspartate Amino Transferase 44 U/L (17-59); Bilirubin,Total 0.6 mg/dL (0.2-1.3); Blood Urea Nitrogen 26 mg/dL (9-20); Calcium 9.4 mg/dL (8.4-10.2); Carbon Dioxide 30 mmol/L (22-30); Chloride 105 mmol/L (98-107); Estimated Glomerular Filt Rate > 60; Glucose 87 mg/dL (65-110); Potassium 4.1 mmol/L (3.4-5.0); Sodium 138 mmol/L (137-145)
[2023-09-23 16:42] LABS: Percent Iron Saturation 37 % (20-50)
[2023-09-27 10:11] LABS: Methylmalonic Acid 76 nmol/L (87-318)
[2023-09-27 20:12] LABS: Platelet Antibody, Direct NEGATIVE (NEGATIVE)
[2023-10-02 12:03] LABS: Soluble Transferrin Receptor 1.15 mg/L (0.76-1.76)
== END 2023-09-23 15:24 | disposition home or self-care (01) ==
LOC: ANHLAB 15:25
PROVIDERS: PCP Student in an Organized Health Care Education/Training Program; Visit Provider Internal Medicine Hematology & Oncology
DX: D69.59 Other secondary thrombocytopenia (principal)
CPT/HCPCS: 36415; 80053; 82607; 82728; 82746; 83540; 83550; 83921; 84238; 85025; 85055; 86023

== ENCOUNTER 2023-10-01 00:38 | Day surgery (SDC) | payer BC, SELFPAY ==
[2023-09-20 13:08] VITALS: BMI 27.5
--- NOTE | 2023-09-27 09:10 | SUR.PREOP ---
Patient called regarding upcoming procedure. Reviewed preop instructions, appointment times, and procedure prep.
[2023-10-01 09:18] VITALS: BP 100/65; PULSE 59; RESP 16; TEMP 36; O2SAT 100
[2023-10-01] MEDS: LACTATED RINGERS 1,000 ML 150 ML IV CONT (09:27)
--- NOTE | 2023-10-01 09:32 | WPDANESEPPF ---
Anes - Initial Pre Proc Eval Procedure: Operation Date: 10/01/23 10:30 Proposed Procedures p Esophagogastroduodenoscopy - Jose Antonio Espinoza MD Date/Time: 10/01/23 09:32 Surgeon: Jose Antonio Espinoza MD Pre Op Diagnosis: GERD,Epigastric pain,Functional Dyspepsia Patient Data Age: 28 Gender: M Height: 1.91 m Weight: 97.7 kg Last Vital Signs Temp 96.8 F L 10/01/23 09:18 Pulse 59 L 10/01/23 09:18 Resp 16 10/01/23 09:18 BP 100/65 10/01/23 09:18 Pulse Ox 100 10/01/23 09:18 O2 Del Method Room Air 10/01/23 09:18 Allergies Allergy/AdvReac Type Severity Reaction Status Date / Time Cat Dander Allergy Unknown Unknown Uncoded 10/01/23 09:16 MOLD Allergy Unknown Unknown Uncoded 10/01/23 09:16 Home Medications Medication Instructions Recorded Confirmed Type divalproex 500 mg tablet,extended 1,000 mg PO BID 07/10/23 10/01/23 History release 24 hr (Depakote ER) fluvoxamine 25 mg tablet 25 mg PO QHS 07/10/23 10/01/23 History fluvoxamine 50 mg tablet 50 mg PO QHS 07/10/23 10/01/23 History omeprazole 40 mg capsule,delayed See Rx Instructions .Route 08/06/23 10/01/23 Rx release .COMPLEX #60 caps sucralfate 1 gram tablet (Carafate) 1 g PO ACHS 90 days #360 tabs 08/06/23 10/01/23 Rx Patient hx anesthesia problems: none Family hx anesthesia problems: none Results Review: All pre-operative results and documents have been reviewed as part of the pre-operative evaluation. [facility] Past Medical History Medical History (Updated 09/30/23 @ 11:56 by Shantal Marie MD) Anxiety Depression Elevated liver enzymes Epigastric pain Functional burping disorder Functional dyspepsia GERD (gastroesophageal reflux disease) GERD with esophagitis Hiatal hernia Hx of seizure disorder Hx of upper gastrointestinal hemorrhage Inflammatory arthritis Marijuana use Obesity Positive MANOLO (antinuclear antibody) Thrombocytopenia Surgical History Surgical History History of placement of ear tubes Social History Social History (Updated 09/30/23 @ 11:09 by Eunice Espinosa MA) Smoking status: Former smoker Tobacco type: cigarettes Alcohol intake: never Substance use: current Substance use type: marijuana Other substance usage details: 14g a week Do You Feel Safe in your Home?: Yes Lack of Transportation: No Lack of Food: Never True Current Housing: I Have Housing Concerned About Future Housing: No Difficulty Paying Gas/Electric Bills: No Difficulty Paying for Meds: No Currently Unemployed: No Education: Decline to Answer Difficulty w/ Childcare or Family Care: No Living arrangements: with family Gender identity (if verbalized by the patient): Male Spiritual care concerns: No Anes - Eval Final PreProcedure Day of Procedure 10/01/23 09:32 Patient weight: normal Heart: regular rate and rhythm Lungs: clear to auscultation Airway: Mallampati scale class II Neurological: alert and oriented Last oral intake: >/= 8 hours ASA classification: III Emergent: no Anesthetic plan: proceed Anesthesia type and monitoring: general GIVS and standard monitoring Results Review: All pre-operative results and documents have been reviewed as part of the pre-operative evaluation. Informed Consent: The patient's anesthetic plan and its attendant risks and benefits were discussed with the patient/family/POA. Questions were solicited and answers provided to the satisfaction of the patient/family/POA.
--- NOTE | 2023-10-01 09:46 | PM.HPGS ---
History of Present Illness History of Present Illness Consent: Risks, benefits, and alternatives have been discussed and questions answered. Patient agrees to proceed with procedure. Chief complaint: GERD,Epigastric pain,Functional Dyspepsia Narrative: Mark Santo is a 28 year old male with epigastric discomfort, using ppi and carafate, last egd 2020 with hiatal hernia and severe erosive esophagitis. Also complains that he can not burp Review of Systems Review of Systems: All systems reviewed & are unremarkable except as noted in HPI and below PMFSH Past Medical History Medical History (Updated 09/30/23 @ 11:56 by Shantal Marie MD) Anxiety Depression Elevated liver enzymes Epigastric pain Functional burping disorder Functional dyspepsia GERD (gastroesophageal reflux disease) GERD with esophagitis Hiatal hernia Hx of seizure disorder Hx of upper gastrointestinal hemorrhage Inflammatory arthritis Marijuana use Obesity Positive MANOLO (antinuclear antibody) Thrombocytopenia Surgical History Surgical History History of placement of ear tubes Social History Social History (Updated 09/30/23 @ 11:09 by Eunice Espinosa MA) Smoking status: Former smoker Tobacco type: cigarettes Alcohol intake: never Substance use: current Substance use type: marijuana Other substance usage details: 14g a week Do You Feel Safe in your Home?: Yes Lack of Transportation: No Lack of Food: Never True Current Housing: I Have Housing Concerned About Future Housing: No Difficulty Paying Gas/Electric Bills: No Difficulty Paying for Meds: No Currently Unemployed: No Education: Decline to Answer Difficulty w/ Childcare or Family Care: No Living arrangements: with family Gender identity (if verbalized by the patient): Male Spiritual care concerns: No Meds Home Medications and Allergies Home Medications Medication Instructions Recorded Confirmed Type divalproex 500 mg tablet,extended 1,000 mg PO BID 07/10/23 10/01/23 History release 24 hr (Depakote ER) fluvoxamine 25 mg tablet 25 mg PO QHS 07/10/23 10/01/23 History fluvoxamine 50 mg tablet 50 mg PO QHS 07/10/23 10/01/23 History omeprazole 40 mg capsule,delayed See Rx Instructions .Route 08/06/23 10/01/23 Rx release .COMPLEX #60 caps sucralfate 1 gram tablet (Carafate) 1 g PO ACHS 90 days #360 tabs 08/06/23 10/01/23 Rx Allergies Allergy/AdvReac Type Severity Reaction Status Date / Time Cat Dander Allergy Unknown Unknown Uncoded 10/01/23 09:16 MOLD Allergy Unknown Unknown Uncoded 10/01/23 09:16 Vital Signs Vital Signs - 24 hr 10/01/23 09:18 Temperature 96.8 F L Pulse Rate 59 L Respiratory Rate 16 Blood Pressure 100/65 Pulse Oximetry 100 Oxygen Delivery Room Air Exam Const: General: comfortable and no acute distress HENMT: Face/Nose/Sinus: Normal nares present Eyes: General: appearance normal, both eyes and all related structures Neck: Neck: no JVD Resp: Auscultation: clear to auscultation bilaterally Cardio: Rate: regular rate Rhythm: regular rhythm GI: Inspection: non-distended GI Palp: Yes Soft to palpation Skin: General skin exam: normal color Neuro: General: gait normal Speech: normal speech Extrem: General: normal to inspection Psych: Mental Status: mental status grossly normal Assessment and Plan Assessment and plan (1) Functional dyspepsia: Code(s): K30 - Functional dyspepsia Status: Acute Assessment and Plan: egd with bx (2) Epigastric pain: Code(s): R10.13 - Epigastric pain Status: Acute (3) Hiatal hernia: Code(s): K44.9 - Diaphragmatic hernia without obstruction or gangrene Status: Acute
[2023-10-01 10:00] VITALS: BP 79/40; PULSE 53; RESP 20; O2SAT 95
[2023-10-01 10:10] VITALS: BP 117/72; PULSE 71; RESP 20; O2SAT 99
[2023-10-01 10:20] VITALS: BP 112/74; PULSE 51; RESP 12; O2SAT 98
--- NOTE | 2023-10-01 10:32 | SUR.PHASEII ---
1005 Pt having strong hiccups. Unable to arouse. Pt began gagging on saliva, or possibly had spasms. Placed pt in jaw thrust and suctioned. Sp02 dropped to 90%, but quickly recovered. Pt began waking up and breathing independently. 1010 Pt now awake and alert.
== END 2023-10-01 10:34 | disposition home or self-care (01) ==
PROVIDERS: PCP Student in an Organized Health Care Education/Training Program; Visit Provider Internal Medicine Gastroenterology
PROC: 0DJ08ZZ Inspection of Upper Intestinal Tract, Via Natural or Artificial Opening Endoscopic (ICD-10-PCS; CPT 43235; principal; 2023-10-01 10:30)
DX: K21.00 Gastro-esophageal reflux disease with esophagitis, without bleeding (principal); K29.50 Unspecified chronic gastritis without bleeding; K31.89 Other diseases of stomach and duodenum; F41.9 Anxiety disorder, unspecified; F32.A Depression, unspecified; G40.909 Epilepsy, unspecified, not intractable, without status epilepticus; D69.6 Thrombocytopenia, unspecified; F12.90 Cannabis use, unspecified, uncomplicated; Z87.891 Personal history of nicotine dependence
CPT/HCPCS: 43239; 88305; J2704; J7120

== ENCOUNTER 2024-03-23 08:02 | Outpatient (CLI) | payer BC, SELFPAY ==
--- NOTE | ~2024-03-23 | US_ITS ---
EXAMINATION: US abdomen limited DATE: 03/23/2024 08:53 INDICATION: Thrombocytopenia. Fatty change of the liver. TECHNIQUE: Multiple grayscale and Doppler ultrasound images of the abdomen were obtained. COMPARISON: 09/07/2023 FINDINGS: The pancreas is normal in appearance. Portions of the pancreatic head and tail are obscured. The visu alized proximal abdominal aorta and inferior vena cava are normal. Liver has normal echogenicity and contour, with a smooth surface. No liver lesion identified. No intrahepatic biliary duct dilation wes pected. Portal venous flow was seen in the hepatopetal, normal direction and has normal Doppler wavef orm. The gallbladder is normal in appearance. There is no cholelithiasis. The common bile duct measu res 4 mm, which is normal. Sonographic Merritt sign was reported as negative by the marbleizing machine tender.Visual is portions of the right kidney demonstrates normal and contour and echogenicity with no hydronephro sis. IMPRESSION: 1. Normal right upper quadrant ultrasound. Reviewed, dictated and finalized at location B.
== END 2024-03-23 08:03 | disposition home or self-care (01) ==
PROVIDERS: PCP Student in an Organized Health Care Education/Training Program; Visit Provider Nurse Practitioner
DX: D69.6 Thrombocytopenia, unspecified (principal); R74.8 Abnormal levels of other serum enzymes
CPT/HCPCS: 76705

== ENCOUNTER 2024-04-22 17:33 | Emergency (ER) | payer BC, SELFPAY ==
[2024-04-22 17:39] VITALS: BP 101/62; PULSE 59; RESP 16; TEMP 36.4; O2SAT 100
--- NOTE | 2024-04-22 18:44 | ED.GENADULT ---
HPI - General Adult General Chief complaint: Unspecified Stated complaint: MISSED SEIZURE MED 1 HOUR AGO NOW HEAD FEELS FUNNY Time Seen by Provider: 04/22/24 18:20 History of Present Illness HPI narrative: 29-year-old male presents with feeling different. Patient states he spilled his Depakote medication yesterday but has not taken any today. Patient takes Depakote for seizures. Patient states she is unable to refill his prescription until tomorrow and is requesting 1 dose of Depakote. Patient has no other symptoms Related Data Home Medications Medication Instructions Recorded Confirmed fluvoxamine 25 mg tablet 25 mg PO QHS 07/10/23 04/01/24 gabapentin 300 mg capsule 300 mg PO DAILY 04/01/24 04/01/24 Allergies Allergy/AdvReac Type Severity Reaction Status Date / Time Cat Dander Allergy Unknown Unknown Uncoded 04/01/24 13:40 MOLD Allergy Unknown Unknown Uncoded 04/01/24 13:40 Review of Systems Review of Systems: A 10 system review of systems was completed on the patient and is negative except for what is stated in the HPI. Nursing and ancillary documentation was reviewed. [facility] Past Medical History Medical History Anxiety Depression Elevated liver enzymes Epigastric pain Functional burping disorder Functional dyspepsia GERD (gastroesophageal reflux disease) GERD with esophagitis Hiatal hernia Hx of seizure disorder Hx of upper gastrointestinal hemorrhage Inflammatory arthritis Marijuana use Obesity Positive MANOLO (antinuclear antibody) Thrombocytopenia Surgical History Surgical History History of placement of ear tubes Social History Social History Smoking status: Former smoker Tobacco type: cigarettes Alcohol intake: never Substance use: current Substance use type: marijuana Other substance usage details: 14g a week Do You Feel Safe in your Home?: Yes Lack of Transportation: No Lack of Food: Never True Current Housing: I Have Housing Concerned About Future Housing: No Difficulty Paying Gas/Electric Bills: No Difficulty Paying for Meds: No Currently Unemployed: No Education: Decline to Answer Difficulty w/ Childcare or Family Care: No Living arrangements: with family Gender identity (if verbalized by the patient): Male Spiritual care concerns: No Exam Narrative: GENERAL: Well-appearing, well-nourished, and in no acute distress. HEAD: Normocephalic, atraumatic. EYES: PERRLA and EOMI. ENT: Nares clear, no rhinorrhea or epistaxis. Mucous membranes moist. NECK: Supple. CHEST: Clear to auscultation. No respiratory distress. HEART: Regular rate and rhythm. No murmur heard. Normal peripheral pulses. ABDOMEN: Soft, nontender, nondistended, normal active bowel sounds. EXTREMITIES: Normal range of motion. No edema. SKIN: Warm, dry, no rash. NEURO: No focal deficits. Alert and oriented x3. PSYCH: Normal mood and affect. Course Course Emergency Course: Will give 1 dose of Depakote Vital Signs Vital signs: Vital Signs Temperature 36.4 C 04/22/24 17:39 Pulse Rate 59 L 04/22/24 17:39 Respiratory Rate 16 04/22/24 17:39 Blood Pressure 101/62 04/22/24 17:39 Pulse Oximetry 100 04/22/24 17:39 Oxygen Delivery Room Air 04/22/24 17:39 Temperature 36.4 C 04/22/24 17:39 Pulse Rate 59 L 04/22/24 17:39 Respiratory Rate 16 04/22/24 17:39 Blood Pressure 101/62 04/22/24 17:39 Pulse Oximetry 100 04/22/24 17:39 Oxygen Delivery Room Air 04/22/24 17:39 Medical Decision Making Vital Signs Vital Signs: Vital Signs Temperature 36.4 C 04/22/24 17:39 Pulse Rate 59 L 04/22/24 17:39 Respiratory Rate 16 04/22/24 17:39 Blood Pressure 101/62 04/22/24 17:39 Pulse Oximetry 100 04/22/24 17:39 Oxygen Delivery Room Air 04/22/24 17:
[2024-04-22] MEDS: DIVALPROEX SODIUM ER 500 MG TAB.24H PO (18:50)
== END 2024-04-22 18:59 | disposition home or self-care (01) ==
LOC: ANHED 18:51
PROVIDERS: Emergency Provider Nurse Practitioner Family; PCP Student in an Organized Health Care Education/Training Program
DX: G40.909 Epilepsy, unspecified, not intractable, without status epilepticus (principal); Z76.0 Encounter for issue of repeat prescription; K21.00 Gastro-esophageal reflux disease with esophagitis, without bleeding; K44.9 Diaphragmatic hernia without obstruction or gangrene; M19.90 Unspecified osteoarthritis, unspecified site; Z87.891 Personal history of nicotine dependence
CPT/HCPCS: 99283; A9270

== ENCOUNTER 2024-04-30 07:30 | Outpatient (CLI) | payer BC, SELFPAY ==
--- NOTE | ~2024-04-30 | CT_ITS ---
CT chest abdomen pelvis w con Ordering provider: Amy Salas APRN History: 29 years Male with . 40 lb weight loss since 08/2023, RLQ discomfort . Comparison: September 19, 2019 Technique: CT chest with IV contrast. CT abdomen and pelvis CT abdomen and pelvis with IV and with or al contrast. Radiation reduction technique utilized.The dose-length product was 596.48 mGy-cm. 100 mL Omnipaque 350 was given IV. FINDINGS: CHEST: --VISUALIZED THORACIC INLET: Normal. --MEDIASTINUM: Aorta/coronary arteries: The thoracic aorta is normal. Heart/other: The heart is not enlarged. Lymph nodes: No mediastinal or hilar adenopathy. --LUNGS: No pulmonary nodules or masses. No infiltrates or effusions. No pneumothorax. --MUSCULOSKELETAL: Soft tissues: The superficial soft tissues are normal. Bones: Normal spine. No suspicious bony lytic or sclerotic lesions. . ABDOMEN/PELVIS: --MUSCULOSKELETAL: Bones: Normal spine. No suspicious bony lytic or sclerotic lesions. Superficial soft tissues: The superficial soft tissues are normal. --UPPER ABDOMINAL ORGANS: Liver: Normal. Gallbladder: Normal. Spleen: Normal. Stomach/duodenum: Normal. Pancreas: Normal. Adrenals: Normal. Kidneys: Normal. --PELVIC ORGANS: The bladder is underfilled. No bladder stones. --BOWEL AND MESENTERY: Colon: No evidence of diverticulitis. Slightly thickened wall of the rectum. Clinical evaluation advi sed. Pulmonary in the transverse colon of slight wall thickening most likely spastic. Further evaluat ion and follow-up is advised. Normal appendix. Small Bowel: Normal. No obstruction. Peritoneum/mesentery: No free air or free fluid. No mesenteric lymphadenopathy. --RETROPERITONEUM: Normal aorta. No retroperitoneal lymphadenopathy. IMPRESSION: CHEST: 1. No acute cardiopulmonary pathology. 2. No definite mass or lymphadenopathy seen. ABDOMEN/PELVIS: 1. No acute abdominal process. 2. No definite masses or lymphadenopathies. 3. Slight thickening of the wall of the rectum. Clinical correlation advised. An area of slight thic kening of the wall most likely due to spasm in the transverse colon. Follow-up advised. Reviewed, dictated and finalized at location A. IMPRESSION: CHEST: 1. No acute cardiopulmonary pathology. 2. No definite mass or lymphadenopathy seen. ABDOMEN/PELVIS: 1. No acute abdominal process. 2. No definite masses or lymphadenopathies. 3. Slight thickening of the wall of the rectum. Clinical correlation advised. An area of slight thickening of the wall most likely due to spasm in the transv erse colon. Follow-up advised.
== END 2024-04-30 07:31 | disposition home or self-care (01) ==
PROVIDERS: PCP Student in an Organized Health Care Education/Training Program; Visit Provider Nurse Practitioner
DX: R63.4 Abnormal weight loss (principal); D69.6 Thrombocytopenia, unspecified; R10.31 Right lower quadrant pain; E53.8 Deficiency of other specified B group vitamins
CPT/HCPCS: 71260; 74177; Q9967

== ENCOUNTER 2024-07-06 16:36 | Outpatient (CLI) | payer BC, SELFPAY ==
--- NOTE | ~2024-07-06 | XR_ITS ---
Thoracic spine: Clinical Indication: Spondylosis AP and lateral views were performed. No fracture is seen. There is normal alignment of the vertebrae. The intervertebral disc spaces appe ar normal. Paravertebral soft tissues appear normal. Impression: No significant abnormalities noted. Reviewed, dictated and finalized at [facility]. ETRAILER SERVICER Impression: No significant abnormalities noted.
--- NOTE | ~2024-07-06 | XR_ITS ---
Cervical Spine: AP, lateral, open-mouth views, with neutral, flexion, and extension positioning Clinical History: Pain Findings: The normal lordotic curve is maintained. The vertebral bodies and posterior elements appea r intact. No instability seen on flexion or extension. The intervertebral disc spaces are well mainta ined. Pre-vertebral soft tissues are unremarkable. Impression: No significant abnormality is seen. Reviewed, dictated and finalized at location . ENTER HELPER Impression: No significant abnormality is seen.
--- NOTE | ~2024-07-06 | XR_ITS ---
Lumbosacral Spine: Lateral views with neutral, flexion, and extension positioning Clinical History: Pain Findings: The normal lordotic curve is maintained. The vertebral bodies and posterior elements are i ntact. No instability seen on flexion or extension. The intervertebral disc spaces are preserved. Th e sacroiliac joints are normally outlined. Impression: No significant abnormality. Reviewed, dictated and finalized at location . TRIMMER Impression: No significant abnormality.
== END 2024-07-06 16:37 | disposition home or self-care (01) ==
PROVIDERS: PCP Student in an Organized Health Care Education/Training Program
DX: M47.816 Spondylosis without myelopathy or radiculopathy, lumbar region (principal); M54.2 Cervicalgia
CPT/HCPCS: 72050; 72072; 72120

== ENCOUNTER 2024-08-17 00:21 | Day surgery (SDC) | payer BC, SELFPAY ==
[2024-06-19 13:14] VITALS: BMI 23.9
--- NOTE | 2024-07-12 10:49 | SUR.PREOP ---
Pt called this am to cancel her procedure on 07/13 due to provider availability. Pt rescheduled to 10/12 at 0830.
--- NOTE | 2024-07-15 08:54 | SUR.PREOP ---
Called pt on 07/14 and offered him an earlier procedure date of 07/20 at 730. He told me he would check to see if his Mom could get off work to take him and let me know by noon on 07/20. I called again today 07/15 and left a message for him and him mom that if I didn't hear from him by 10 today I would have to fill that spot with another patient.
--- OUTSIDE RECORDS SUMMARY | 2024-08-17 00:26 | XMS_ITS | Continuity of Care Document ---
Author Organization [facility] Address [address] [place] [address] [address] [place] [address] Phone Care Team Providers Care Facility Sales And Admin Name Role Phone Alia Dozier Unavailable Unavailable Advance Directives Directive Yes / No Effective Date File Name No Information Encounters Encounter Description Practice Location Reason(s) For Visit Diagnoses Date Provider Providers Copied on Encounter [facility], [address] [place] [address] [address], [place], [place], [id number], [place] tel:[phone] SEC [facility] [place] No Information Dec-1 0-200 1 Tasia Rojo. [address] , [address], [place], [address], [place]. tel:[phone] Family History Family Member Type Diagnosis Age At Onset No Information Payers Payer name Insurance type Covered libertarian ID Authoriza tion(s) No Information Social History Type Description Quantity Date Captured Comments Sex Male Smoking Status No Information Chief Complaint And Reason For Visit No Information Reason For Referral Reason For Referral No Information History Of Present Illness Encounter Date Complaint History Of Prese nt Illness No Information Functional Status Date Functional Assessmen t No Information Instructions Date Instruction Additional Infor mation No Information Assessments Type Assessment Date No Information Patient Care Teams Name Effective Dates (start - stop) Status Members No Information
--- OUTSIDE RECORDS SUMMARY | 2024-08-17 00:26 | XMS_ITS | Clinical Summary ---
Author Organization [facility] Address [facility] [place] [address] Care Team Providers Care Director Environmental Name Role Phone Cuco Reynaga Primary Care Provider + Allergies Active Allergy Reactions Criticality Noted Date Comments Molds & Smuts Unknown 01/27/2019 Medications divalproex EC (DEPAKOTE) 500 MG tablet TAKE 2 TABLETS BY MOUTH IN THE MORNING AND 2 IN THE EVENING FOR TOTAL DOSE OF 2000 MG DAILY 05/16/2023 Active fluvoxaMINE (LUVOX) 25 MG tablet Take 1 tablet (25 mg total) by mouth daily. 04/25/2023 Active fluvoxaMINE (LUVOX) 50 MG Tab 04/24/2023 Active omeprazole (PRILOSEC) 40 MG capsule 07/10/2023 Active sucralfate (CARAFATE) 1 G tablet 07/04/2023 Active hydrOXYzine (ATARAX) 50 MG tablet Take 1 tablet (50 mg total) by mouth daily as needed. 12/24/2023 Active fluconazole (DIFLUCAN) 150 MG tabletIndicatio ns:Rash Take 1 tablet (150 mg total) by mouth every 7 days. 4 tablet 02/07/2024 Active cefdinir (OMNICEF) 300 MG Cap capsuleIndicati ons:Right ear pain Take 2 capsules (600 mg total) by mouth daily. 14 capsule 02/24/2024 Active Active Problems Problem Noted Date Diagnosed Date Chronic bilateral low back p ain, unspecified whether sciatica present 07/17/2023 Positive MANOLO (antinuclear antibody) 07/17/2023 Chronic neck pain 07/17/2023 Chronic gastric ulcer withou t hemorrhage and without perforation 07/17/2023 History of drug abuse ([facility]) 07/17/19 24 Anxiety 07/17/2023 Hiatal hernia with GERD and esophagitis 07/03/20 21 Overview (08/22/2023): 07/05/2021: EGD on 07/05/2021 revealed LA Grade D reflux esophagitis + 3 cm hiatal hernia + erythematous mucosa in the stomach (biopsied), GI recommended Pantoprazole 40 mg PO twice daily for two months then daily + Carafate 1 g QID for 1 month + anti-reflux regimen + repeat EGD in 8 weeks to check for healing of esophagitis (pt could consider surgical evaluation for hiatal hernia repair) Seizure disorder ([facility]) 11/16/2018 Asperger's syndrome ([facility]) 08/01/2010 Attention deficit hyperactivity disorder (ADHD) 07/31/2010 Resolved Problems Problem Noted Date Diagnosed Date Resolved Date Marijuana use 07/03/2021 08/22/2023 Atrial fibrillation ([facility]) 11/16/2018 08/22/2023 Oppositional defiant disorder 07/31/2010 08/22/2023 Encounters Date Type Department Care Team Description 07/06/2024 Scan HEALTH INFO SRVCS Scanned, Doc Med Group Image (SCAN) from Last 3 Months Immunizations Name Administration Dates Next Due Pneumococcal (Prevnar 20) 02/06/2024 Family History Medical History Relation Comments Cancer Father lung Heart Disease Maternal Grandfather Hypertension Mother Cancer Paternal Grandfather Relation Status Comments Father Maternal Grandfather Mother Paternal Grandfather Social History Tobacco Use Types Packs/Day Years Used Date Smoking Tobacco: Former Cigarettes Q uit: 08/17/2018 Passive Smoke Exposure: Past Smokeless Tobacco: Never Tobacco Cessation:Counseling Given: Not Answered Alcohol Use Standard Drinks/Week Comments Not Currently 0 (1 standard drink = 0.6 oz pur e alcohol) AUDIT-C Answer Date Recorded Frequency of Alcohol Consumption Never 08/17/2019 Average Number of Drinks Not on file 020 Frequency of Binge Drinking Not on file 08/08 PHQ-2 Answer Date Recorded Patient Health Questionnaire-2 Score 3 07/17/2023 Sex and Gender Information Value Date Recorded Sex Assigned at Male 07/17/2023 8:07 AM DREDGING INSPECTOR Legal Sex Male 10:22 PM DREDGING INSPECTOR Gender Identity Male 07/17/2023 8:07 AM DREDGING INSPECTOR Sexual Orientation Straight 07/17/2023 8: 07 AM DREDGING INSPECTOR Last Filed Vital Signs Vital Sign Reading Time Taken Comments Blood Pressure 134/79 2024 7:34 PM CDT Pulse 54 2024 7:34 PM CDT Temperature 36.4 C (97.5 F) 2024 7:34 PM CDT Respiratory Rate 16 2024 7:34 PM CDT Oxygen Saturation 96% 2024 7:34 PM CDT Inhaled Oxygen Concentration - - Weight 90.7 kg (200 lb) 2024 5:49 PM CDT Height 190.5 cm (6' 3 ) 2024 5:49 PM CDT Body Mass Index 25 2024 5:49 PM CDT Plan of Treatment Health Maintenance Due Date Last Done Comments Annual Physical 2000 COVID-19 Vaccine ( season) 2024 Influenza Adult (#1) 2024 PHQ-2 (Physician Platinum) 07/08/2024 07/17/2023 PHQ-2 (Physician Platinum) 07/17/2024 07/17/2023 DTaP, Tdap and Td Vaccines (8 - Td or Tdap) 09/01/2029 09/01/2019, 02/01/2009, 01/01/2003, Additional history exists Hepatitis B Vaccines Completed 01/05/1998, 1997, 1997 HPV Vaccines Completed 10/11/2014, 01/25/2012 Meningococcal Vaccine Completed 10/11/2014, 009 Hepatitis C Completed 08/26/2023, 08/14/2023 Pneumococcal Vaccine: Pediatrics (0 to 5 Years) and At-Risk Patients (6 to 64 Years) Aged Out 02/06/2024, 09/03/2000 No longer eligibl e based on patient's age to complete this topic Meningococcal B Vaccine Aged Out No l onger eligible based on patient's age to complete this topic RSV Immunizations Under 20 Months Aged Out No longer eligible based on patient's age to complete this topic Procedures Procedure Name Priority Date/Time Associated Diagnosis Comments IMAGE GENERIC 07/06/2024 IMAGE GENERIC 07/06/2024 IMAGE GENERIC 07/06/2024 HEP C SCANNED ORDERS Routine 08/26/2023 from Last 3 Months or Most Recently Relevant to Health Maintenance Results * IMAGE GENERIC (07/06/2024) Only the most recent of3 resultswithin the time period is included. Anatomical Region Laterality Modality Other 07/06/2024 us Doc Med Group Scanned SCANNING Final Resu lt * HEP C SCANNED ORDERS (08/26/2023) us Doc Med Group Scanned SCANNING Final [facility]u [facility] from Last 3 Months or Most Recently Relevant to Health Maintenance Insurance [facility] [employer] [facility] [place] Care Teams Director Environmental Relationship Specialty Start Date End Date Cuco Reynaga DO [address] [place] [address] PCP - General FAMILY PRACTICE 07/17/23
--- OUTSIDE RECORDS SUMMARY | 2024-08-17 00:26 | XMS_ITS | Encounter Summary ---
Author Organization [facility] Address [address] [place] [address] Care Team Providers Care Dance Teacher Name Role Phone Reji Grant MD Primary Care Provider Encounter Details Date Type Department Care Team (Late st Contact Info) Description 01/15/2006 Outpatient Historical [facility], Authorized P NO ADDRESS ON FILE Social History Tobacco Use Types Packs/Day Years Used Date Smoking Tobacco: Never Assessed Sex and Gender Information Value Date Recorded Sex Assigned at Not on file Legal Sex Male 3:52 AM DECORATING SUPERVISOR Gender Identity Not on file Sexual Orientation Not on file documented as of this encounter Plan of Treatment Not on file documented as of this encounter Visit Diagnoses Not on filedocumented in this encounter Care Teams Dance Teacher Relationship Specialty Start Date End Date Reji Grant MD [address] [place] [address] PCP - General Gastroenterology 09/28/21 documented as of this encounter
--- OUTSIDE RECORDS SUMMARY | 2024-08-17 00:26 | XMS_ITS | Patient Health Summary ---
Author Organization [facility] Address [address] [place] [address] Care Team Providers Care Relish Maker Name Role Phone Unavailable Primary Care Provider Unavailabl e Note from [facility],non-owned Affiliates and Associated Physician Practices is amultiple site organization consisting of ambulatory clinics and hospital sitesin [place], [place], [place] and [place]. This disclosure is being madepursuant to the Care Everywhere program and may not contain all information available regarding this patient. Last updated 18.[facility] Events Core Allergies No known active allergies Medications * Be aware that medications may not be up to date on this document. Alwaysverify current medications with the patient. * pantoprazole EC (PROTONIX) 40 MG tablet Take 40 mg by mouth once daily. Social History Tobacco Use Types Packs/Day Years Used Date Smoking Tobacco: Every Day Cigarettes Alcohol Use Standard Drinks/Week Comments Yes 0 (1 standard drink = 0.6 oz pur e alcohol) Sex and Gender Information Value Date Recorded Sex Assigned at Not on file Gender Identity Not on file Sexual Orientation Not on file Last Filed Vital Signs Vital Sign Reading Time Taken Comments Blood Pressure 135/80 08/19/2022 3:29 PM CATERPILLAR OPERATOR Pulse 87 08/19/2022 3:29 PM CATERPILLAR OPERATOR Temperature 36.5 C (97.7 F) 08/19/2022 3:29 PM CATERPILLAR OPERATOR Respiratory Rate 18 08/19/2022 3:29 PM CATERPILLAR OPERATOR Oxygen Saturation 99% 08/19/2022 3:29 PM CATERPILLAR OPERATOR Inhaled Oxygen Concentration - - Weight 108.9 kg (240 lb) 08/19/2022 3:29 PM CATERPILLAR OPERATOR Height 190 cm (6' 2.8 ) 08/19/2022 3:29 PM CATERPILLAR OPERATOR Body Mass Index 30.16 08/19/2022 3:29 PM CATERPILLAR OPERATOR Procedures * CARDIAC EKG ORDER(Performed 08/20/2022) * XR CHEST 2VW(Performed 08/19/2022) Performed for Chest pain, unspecified type * TROPONIN I(Performed 08/19/2022) * B-TYPE NATRIURETIC PEPTIDE(Performed 08/19/2022) * COMPREHENSIVE METABOLIC PANEL(Performed 08/19/2022) * CBC W AUTO DIFFERENTIAL(Performed 08/19/2022) * EKG 12-LEAD(Performed 08/19/2022) Performed for Chest pain, unspecified type * ESOPHAGOGASTRODUODENOSCOPY (EGD) BIOPSY(Performed 07/27/2014) Performed for Esophageal reflux, Nausea With Vomiting * ESOPHAGOGASTRODUODENOSCOPY (EGD) DIAGNOSTIC(Performed 07/27/2014) Performed for Esophageal reflux, Nausea With Vomiting * PATHOLOGY TISSUE EXAM (STL)(Performed 07/27/2014) * HELICOBACTER PYLORI UREASE (STL)(Performed 07/27/2014) * EGD(Performed 07/27/2014) * DERMATOPATHOLOGY(Performed 12/13/2011) Results * CARDIAC EKG ORDER (08/20/2022 6:36 PM CATERPILLAR OPERATOR) Narrative 08/20/2022 6:36 PM CATERPILLAR OPERATOR Ordered by an unspecified provider. Scanned Document CARDIAC SERVICES ORD ERABLES * XR CHEST 2VW (08/19/2022 4:25 PM CATERPILLAR OPERATOR) Anatomical Region Laterality Modality Chest Radiographic Carol ging 08/19/2022 4:27 PM CATERPILLAR OPERATOR Impressions 08/19/2022 4:27 PM CATERPILLAR OPERATOR IMPRESSION: No acute cardiopulmonary findings. > Interpreting Provider: Seb Gonzalez MD on 08/19/2022 4:27 PM Narrative 08/19/2022 4:27 PM CATERPILLAR OPERATOR PROCEDURE(s): XR CHEST 2VW; DATE AND TIME OF EXAM(s): 08/19/2022 4:25 PM; LOCATION: [facility] INDICATION(s): R07.9: Chest pain, unspecified. COMPARISON(s): None available. FINDINGS: The cardiomediastinal silhouette is normal. The pulmonary vasculature is unremarkable. The lungs are clear. There is no pleural effusion. There is no pneumothorax. The osseous structures are grossly unremarkable. Procedure Note Seb Gonzalez MD - 08/19/2022 PROCEDURE(s): XR CHEST 2VW; DATE AND TIME OF EXAM(s): 08/19/2022 4:25 PM; LOCATION: [facility] INDICATION(s): R07.9: Chest pain, unspecified. COMPARISON(s): None available. FINDINGS: The cardiomediastinal silhouette is normal. The pulmonary vasculature is unremarkable. The lungs are clear. There is no pleural effusion. There is no pneumothorax. The osseous structures are grossly unremarkable. IMPRESSION: No acute cardiopulmonary findings. > Interpreting Provider: Seb Gonzalez MD on 08/19/2022 4:27 PM Usha Fraser [employer] DIAGNOSTIC IMAG[facility] ORDERABLES * TROPONIN I (08/19/2022 3:55 PM CATERPILLAR OPERATOR) Pathologist [facility] [place] Troponin I <0.010 <0.038 ng/mL 08/19/2022 4:24 PM CATERPILLAR OPERATOR [facility] Blood BLOOD SPECIMEN / Unknown Venipuncture / Unknown 08/19/2022 3:55 PM CATERPILLAR OPERATOR 08/19/2022 3:59 PM CATERPILLAR OPERATOR Usha Fraser [employer] LAB - CHEMI STRY ORDERABLES [facility] [address] [place] [id number] * (ABNORMAL) CBC W AUTO DIFFERENTIAL (08/19/2022 3:55 PM CATERPILLAR OPERATOR) Pathologist [facility] [place] WBC 6.2 4.4 - 10.7 x10E9/L 08/19/2022 4:02 PM CATERPILLAR OPERATOR [facility] WBC Corrected 08/19/2022 4:02 PM CATERPILLAR OPERATOR [facility] RBC 4.18 3.80 - 5.40 x10E12/L 08/19/2022 4:02 PM CATERPILLAR OPERATOR [facility] Hemoglobin 13.2 12.0 - 17.6 gm/dL 08/19/2022 4:02 PM [facility] Hematocrit 41.1 35.2 - 51.7 % 08/19/2022 4:02 PM [facility] MCV 98.3 80.7 - 98.3 fl 08/19/2022 4:02 PM [facility] MCH 31.6 26.7 - 34.0 pg 08/19/2022 4:02 PM [facility] MCHC 32.1 30.8 - 35.9 gm/dL 08/19/2022 4:02 PM [facility] Platelet Count 182 153 - 416 x10E9/L 08/19/2022 4:02 PM [facility] RDW-CV 12.6 12.1 - 14.9 % 08/19/2022 4:02 PM [facility] MPV 10.3 9.4 - 12.9 fl 08/19/2022 4:02 PM [facility] Neutrophils % 55.7 44.0 - 73.0 % 08/19/2022 4:02 PM [facility] Lymphocytes % 24.6 20.0 - 43.0 % 08/19/2022 4:02 PM [facility] Monocytes % 15.9(H) 5.0 - 13.0 % 08/19/2022 4:02 PM [facility] Eosinophils % 3.1 0.0 - 6.0 % 08/19/2022 4:02 PM [facility] Basophils % 0.5 0.0 - 2.0 % 08/19/2022 4:02 PM [facility] Immature Granulocytes 0.2 0 - 1 % 08/19/2022 4:02 PM [facility] Neutrophil Absolute 3.47 2.01 - 7.14 x10E9/L 08/19/2022 4:02 PM [facility] Lymphocytes Absolute 1.53 1.07 - 3.94 x10E9/L 08/19/2022 4:02 PM [facility] Monocytes Absolute 0.99 0.26 - 1.07 x10E9/L 08/19/2022 4:02 PM [facility] Eosinophils Absolute 0.19 0 - 0.47 x10E9/L 08/19/2022 4:02 PM CATERPILLAR OPERATOR [facility] Basophils Absolute 0.03 0 - 0.08 x10E9/L 08/19/2022 4:02 PM CATERPILLAR OPERATOR [facility] Immature Granulocytes Absolute 0.01 0.00 - 0.06 x10E9/L 08/19/2022 4:02 PM CATERPILLAR OPERATOR [facility] nRBC Auto 0 /100 WBC 08/19/2022 4:02 PM CATERPILLAR OPERATOR [facility] Blood BLOOD SPECIMEN / Unknown Venipuncture / Unknown 08/19/2022 3:55 PM CATERPILLAR OPERATOR 08/19/2022 3:59 PM CATERPILLAR OPERATOR [facility]sha [facility] - HEMAT OLOGY ORDERABLES Performing Organization Address [facility]/ZIP Co de Phone Number [facility] [address] [place] [address] * B-TYPE NATRIURETIC PEPTIDE (08/19/2022 3:55 PM CATERPILLAR OPERATOR) BNP <10 <=100 pg/mL 08/19/2022 4:25 PM CATERPILLAR OPERATOR [facility] Blood BLOOD SPECIMEN / Unknown Venipuncture / Unknown 08/19/2022 3:55 PM CATERPILLAR OPERATOR 08/19/2022 3:59 PM CATERPILLAR OPERATOR Narrative [facility] - 08/19/2022 4:25 PM CATERPILLAR OPERATOR A cutoff of 100 pg/mL has been demonstrated to provide the maximal combination of sensitivity, specificity, and negative predictive value for contributing to the diagnosis of congestive heart failure (CHF) only. A B-Type Natriuretic Peptide (BNP) value greater than or equal to 100 pg/mL is consistent with a diagnosis of CHF in the appropriate clinical setting. False positive results are more common in females greater than 75 years of age. Blood concentrations of natriuretic peptides may also be elevated in patients with myocardial infarction and in patients who are candidates for or are undergoing renal dialysis. Usha Fraser [facility] - CHEMI STRY ORDERABLES Performing Organization Address City/[facility]/ZIP Co de Phone Number [facility] [address] [place] [address] * (ABNORMAL) COMPREHENSIVE METABOLIC PANEL (08/19/2022 3:55 PM CATERPILLAR OPERATOR) [facility] Glucose 81 70 - 105 mg/dL 08/19/2022 4:18 PM [facility] Sodium 140 136 - 145 mmol/L 08/19/2022 4:18 PM [facility] Potassium 3.9 3.5 - 5.1 mmol/L 08/19/2022 4:18 PM [facility] Chloride 104 98 - 107 mmol/L 08/19/2022 4:18 PM [facility] CO2 29 23 - 31 mmol/L 08/19/2022 4:18 PM [facility] Calcium 9.2 8.4 - 10.4 mg/dL 08/19/2022 4:18 PM [facility] Anion Gap 7(L) 8 - 18 mmol/L 08/19/2022 4:18 PM [facility] BUN 14 8.9 - 20.6 mg/dL 08/19/2022 4:18 PM [facility] Creatinine 1.07 0.72 - 1.25 mg/dL 08/19/2022 4:18 PM [facility] Alkaline Phosphatase 77 40 - 150 U/L 08/19/2022 4:18 PM [facility] ALT 90(H) 0 - 61 U/L 08/19/2022 4:18 PM [facility] AST 90(H) 5 - 34 U/L 08/19/2022 4:18 PM [facility] Protein Total 6.9 6.4 - 8.3 gm/dL 08/19/2022 4:18 PM [facility] Albumin 4.1 3.5 - 5.2 gm/dL 08/19/2022 4:18 PM [facility] Bilirubin Total 0.3 0.2 - 1.2 mg/dL 08/19/2022 4:18 PM [facility] eGFR by CKD-EPI >90 >=90 mL/min/1.7 3 m2 08/19/2022 4:18 PM [facility] Blood BLOOD SPECIMEN / Unknown Venipuncture / Unknown 08/19/2022 3:55 PM CATERPILLAR OPERATOR 08/19/2022 3:59 PM [facility] Usha Fraser APRN-[facility] - CHEMI STRY ORDERABLES [facility] [address] [id number] * EKG 12-LEAD (08/19/2022 3:34 PM CATERPILLAR OPERATOR) Ventricular Rate 85 BPM [facility] Atrial Rate 85 BPM [facility] P-R Interval 120 ms [facility] QRS Duration ms 96 ms [facility] Q-T Interval ms 402 ms [facility] QTC Calculation (Bezet) 478 ms [facility] Calculated P [place] 32 degrees [facility]USE Calculated R [place] 29 degrees [facility] Calculated T [place] 9 degrees [facility] Interpretation EKG Normal sinus rhythm Minimal voltage criteria for LVH, may be normal variant Possible Inferior infarct , age undetermined Nonspecific T wave abnormality Abnormal ECG No previous ECGs available Confirmed by MD BARNHART ANDREA ([id number]) on 08/20/2022 8:42:00 PM [facility] 08/19/2022 3:34 PM CATERPILLAR OPERATOR 08/20/2022 8:42 PM CATERPILLAR OPERATOR Matias Hurtado MD ECG ORDERABLES Performing Organization Address [facility] Co de Phone Number [facility] * GROSS + MICRO EXAM (STL) (07/27/2014 7:16 AM CATERPILLAR OPERATOR) Case Report Surgical Pathology Report Case: [id number] Authorizing Provider: Richard Maria MD Collected: 07/27/2014 07:16 AM Ordering Location: [facility] Received: 07/27/2014 12:18 PM Pathologist: Lina Barnes MD Specimen: Esophageal Biopsy, distal esophagus bx 07/28/2014 11:13 AM CATERPILLAR OPERATOR [facility] Final Diagnosis 1. Esophagus, biopsy: -- Reflux esophagitis -- Acute and chronic inflammation, moderate -- Negative for metaplasia or dysplasia GM/scs 07/28/2014 11:13 AM CATERPILLAR OPERATOR [facility] Gross Description Received in formalin in a container labeled Mason Rivas, distal esophagus biopsy. The container holds multiple pink-[place] tissue fragments measuring from 0.2 cm up to 0.5 cm in greatest dimension. The specimen is entirely submitted in a cassette labeled A1. DYT/renae 07/28/2014 11:13 AM CATERPILLAR OPERATOR [facility] Microscopic Description There are multiple strips of squamous mucosa with features of reflux esophagitis including scattered eosinophils along with acute and chronic inflammatory cells and superficial vascular papilla. Columnar lined tissue with underlying mucinous glands showing acute and chronic inflammation is present as well. Reactive changes are noted. The PAS Alcian blue stain is negative for goblet cell metaplasia or fungal elements. GM/scs 07/28/2014 11:13 AM CATERPILLAR OPERATOR [facility] Pathology/Cytolo gy ESOPHAGEAL BIOPSY SPECIMEN / Unknown 07/27/2014 7:16 AM CATERPILLAR OPERATOR 07/27/2014 12:18 PM CATERPILLAR OPERATOR Comment:799.9 Rcihard Maria MD LAB - PATHOLOGY/C YTOLOGY ORDERABLES Performing Organization Address City/[facility] Co de Phone Number [facility] [address] [place] [id number] * HELICOBACTER PYLORI UREASE (STL) (07/27/2014 7:15 AM CATERPILLAR OPERATOR) Helicobacter pylori Urease Initial Negative Negative 07/28/2014 3:09 PM CATERPILLAR OPERATOR [facility] Helicobacter pylori Urease Final Negative Negative 07/28/2014 3:09 PM [facility] Microbiology GASTRIC ANTRAL BIOPSY SPECIMEN / Unknown 07/27/2014 7:15 AM CATERPILLAR OPERATOR 07/27/2014 11:46 AM CATERPILLAR OPERATOR Comment:799.9 Richard Maria MD LAB - MICROBIOLOG Y ORDERABLES [facility] [address] [place] [id number] * EGD (07/27/2014 6:57 AM CATERPILLAR OPERATOR) Report Endoscopy POC _ Patient Name: Mason Rivas Procedure Date: 07/27/2014 6:57 AM Date of : 1995 Admit Type: Outpatient Age: 19 Gender: Male Attending MD: Richard Maria MD _ Procedure: Upper GI endoscopy Indications: Persistent vomiting of unknown cause Providers: Richard Maria MD (Doctor)Tami Rebolledo RN, Martin Gonzalez, Referring MD: Venus Young MD (Referring MD) Medicines: See the Anesthesia note for documentation of the administered medications Complications: No immediate complications. _ Procedure: After obtaining informed consent, the endoscope was passed under direct vision. Throughout the procedure, the patient's blood pressure, pulse, and oxygen saturations were monitored continuously. The Endoscope was introduced through the mouth, and advanced to the second part of duodenum. The upper GI endoscopy was accomplished without difficulty. The patient tolerated the procedure well. Impression: - LA Grade A reflux esophagitis. Biopsied. - Normal stomach. Biopsied. - Normal 2nd part of the duodenum. Findings: LA Grade A (one or more mucosal breaks less than 5 mm, not extending between tops of 2 mucosal folds) esophagitis was found 39 to 41 cm from the incisors. Biopsies were taken with a cold forceps for histology. Estimated blood loss was minimal. The entire examined stomach was normal. Biopsies were taken with a cold forceps for Helicobacter pylori testing using CLOtest. Estimated blood loss was minimal. The 2nd part of the duodenum was normal. _ Recommendation: - Discharge patient to home. - Resume previous diet. - Continue present medications. - Telephone my office for pathology results in 2 days. - Follow an antireflux regimen. Discontinue smoking, and alcohol Procedure Code(s): --- Professional --- 82804, Esophagogastroduo denoscopy, flexible, transoral; with biopsy, single or multiple --- Technical --- 50355, Esophagogastroduo denoscopy, flexible, transoral; with biopsy, single or multiple Diagnosis Code(s): --- Professional --- 530.11, Reflux esophagitis 536.2, Persistent vomiting --- Technical --- 530.11, Reflux esophagitis 536.2, Persistent vomiting CPT copyright 2013 [employer]. All rights reserved. The codes documented in this report are preliminary and upon woodwind instrument repairer review may be revised to meet current compliance requirements. 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 GROSS DESCRIPTION: Received is one formalin filled container labeled with the patient's name and designated left upper arm. The specimen consists of a shave biopsy measuring 8x6x1 mm. Jar 0. MICROSCOPIC DESCRIPTION: There are nests of melanocytes at the dermal-epiderm al junction and within the dermis. Some melanocytes are splayed between collagen bundles and are localized around adnexal structures. Final Diagnosis performed by Omaira Joseph M.D. Electronically signed 12/17/2011 4:04:37PM [facility] Comment: Performed at: Dermatopathology Laboratory [facility] Department of Dermatology [address] [place] [address], [address] [place] [address] Phone number: [phone] Toll Free: [phone] FAX: [phone] 12/13/2011 12/14/2011 Historical Provider MD LAB - PATHOLOGY/C YTOLOGY ORDERABLES [facility] [address] [place] [address]. [address] Lab [address] [phone]
--- OUTSIDE RECORDS SUMMARY | 2024-08-17 00:26 | XMS_ITS | Referral Summary ---
Author Organization [facility] Address [address] [place] [address] Care Team Providers Care Microsoft Bi Architect Name Role Phone Unavailable Primary Care Provider Unavailabl e Source Comments [facility],non-owned Affiliates and Associated Physician Practices is amultiple site organization consisting of ambulatory clinics and hospital sitesin [place], [place], [place] and [place]. This disclosure is being madepursuant to the Care Everywhere program and may not contain all information available regarding this patient. Last updated 18.[facility] [employer] Allergies No known active allergies Medications * Be aware that medications may not be up to date on this document. Alwaysverify current medications with the patient. Medication Sig Dispensed Refills Start Date End Date Status pantoprazole EC (PROTONIX) 40 MG tablet Take 40 mg by mouth once daily. Active Social History Tobacco Use Types Packs/Day Years [...] Comments Blood Pressure 135/80 08/19/2022 3:29 PM PASTRY SOUS CHEF Pulse 87 08/19/2022 3:29 PM PASTRY SOUS CHEF Temperature 36.5 C (97.7 F) 08/19/2022 3:29 PM PASTRY SOUS CHEF Respiratory Rate 18 08/19/2022 3:29 PM PASTRY SOUS CHEF Oxygen Saturation 99% 08/19/2022 3:29 PM PASTRY SOUS CHEF Inhaled Oxygen Concentration - - Weight 108.9 kg (240 lb) 08/19/2022 3:29 PM PASTRY SOUS CHEF Height 190 cm (6' 2.8 ) 08/19/2022 3:29 PM PASTRY SOUS CHEF Body Mass Index 30.16 08/19/2022 3:29 PM PASTRY SOUS CHEF Plan of Treatment Not on file
--- OUTSIDE RECORDS SUMMARY | 2024-08-17 00:26 | XMS_ITS | Continuity of Care Document ---
Author Organization [facility] Address [address] [place] [phone] Phone Care Team Providers Care Pig Farmer Name Role Phone Nacho Whitmore MD Unavailable Unavailable Medications Medication Instructions Dosage Effective Dates (start - stop) Status Comments DEPAKOTE (unknown strength) take 2 tablet by oral route 2 times every day Not Available - Active FLUVOXAMINE MALEATE ER (unknown strength) take 1 capsule by oral route every day at bedtime Not Available - Active Procedures Procedure Date OFFICE/OUTPATIENT VISIT EST R2 24 Esophogoscopy, Rigid, Transoral 024 Office/Outpatient Visit New ENDOSCOPY SWALLOW TST (FEES) ENDOSCOPY SWALLOW TST EVAL Advance Directives Directive Yes / No Effective Date File Name No Information Encounters Encounter Description Practice Location Reason(s) For Visit Diagnoses Date Provider Providers Copied on Encounter OFFICE[facility]OUTPAT IENT VISIT EST [facility] , [address] [place] [address], [id number] , [place] tel:[phone] [facility] Abdominal bloatingBelching symptomDyskinesia of esophagus 4 [facility] Griffith. [address] [place] [address], [id number] . [phone] [facility] , [address] [place] [address], [id number] , [place] [phone] [facility] No Information 4 Myranda Griffith. [address] [place], [place] [address], [id number] . tel:[phone] Office/Outpat ient Visit [facility] , [address], [place], [place], [id number] , tel:[phone] [facility] Belching symptomDyskinesia of esophagusAbdominal bloating 4 Myranda Griffith. [address], [address], [place], [place], [id number] . tel:[phone] Family History Family Member Type Diagnosis Age At Onset No Information Payers Payer name Insurance type Covered alliance party ID Authoryaredjm samlevi(s) [facility] [id number] Social History Type Description Quantity Date Captured Comments Alcohol Use Details Unknown Caffeine Use Details Unknown Tobacco Use Status No Information Smoking Status Former smoker Sex Male Chief Complaint And Reason For Visit No Information Reason For Referral Reason For Referral No Information History Of Present Illness Encounter Date Complaint History Of Prese nt Illness No Information Functional Status Date Functional Assessmen t No Information Instructions Date Instruction Additional Infor mation No Information Assessments Type Assessment Date assessment Abdominal bloating assessment Belching symptom assessment Dyskinesia of esophagus 024 Patient Care Teams Name Effective Dates (start - stop) Status Members No Information
--- OUTSIDE RECORDS SUMMARY | 2024-08-17 00:26 | XMS_ITS | Clinical Summary ---
Author Organization [facility] Address [address] [place] [address] Care Team Providers Care Distribution Technician Name Role Phone Unavailable Primary Care Provider Unavailabl e Source Comments [facility],non-owned Affiliates and Associated Physician Practices is amultiple site organization consisting of ambulatory clinics and hospital sitesin [place], [place], [place] and [place]. This disclosure is being madepursuant to the Care Everywhere program and may not contain all information available regarding this patient. Last updated 18.[facility] Allergies No known active allergies Medications * Be aware that medications may not be up to date on this document. Alwaysverify current medications with the patient. Medication Sig Dispensed Refills Start Date End Date Status pantoprazole EC (PROTONIX) 40 MG tablet Take 40 mg by mouth once daily. Active Family History Medical History Relation Name Comments Cancer Maternal Grandfather lung ca ncer Cancer Paternal Grandfather larynx and rectal cancer Relation Name Status Comments Maternal Grandfather Paternal Grandfather Social History Tobacco Use Types [...] Comments Blood Pressure 135/80 08/19/2022 3:29 PM SPINNING FRAME CHANGER Pulse 87 08/19/2022 3:29 PM SPINNING FRAME CHANGER Temperature 36.5 C (97.7 F) 08/19/2022 3:29 PM SPINNING FRAME CHANGER Respiratory Rate 18 08/19/2022 3:29 PM SPINNING FRAME CHANGER Oxygen Saturation 99% 08/19/2022 3:29 PM SPINNING FRAME CHANGER Inhaled Oxygen Concentration - - Weight 108.9 kg (240 lb) 08/19/2022 3:29 PM SPINNING FRAME CHANGER Height 190 cm (6' 2.8 ) 08/19/2022 3:29 PM SPINNING FRAME CHANGER Body Mass Index 30.16 08/19/2022 3:29 PM SPINNING FRAME CHANGER Plan of Treatment Health Maintenance Due Date Last Done Comments HIV SCREENING 2012 HEPATITIS C SCREENING 04/10/2015 DTAP/TDAP/TD VACCINES (1 - Tdap) 2016 HEPATITIS B VACCINE (1 of 3 - 19+ 3-dose series) 2016 PNEUMOCOCCAL VACCINE (1 of 2 - PCV) 2016 COVID-19 VACCINE ( - 2023-2 5 season) 2024 INFLUENZA VACCINE (#1) 2024 DEPRESSION SCREENING 07/08/2024 ZOSTER VACCINE (1 of 2) 2047 HIB VACCINE Aged Out No longer eligi ble based on patient's age to complete this topic HPV VACCINE Aged Out No longer eligi ble based on patient's age to complete this topic MENINGOCOCCAL (Group B) VACCINE Aged Out No longer eligible based on patient's age to complete this topic MENINGOCOCCAL VACCINE Aged Out No soledad gerardo eligible based on patient's age to complete this topic
--- OUTSIDE RECORDS SUMMARY | 2024-08-17 00:26 | XMS_ITS | Clinical Summary ---
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 Takes 75 mg at bedtime Active divalproex (DEPAKOTE) 500 mg delayed release tablet Take 500 mg by mouth 3 times daily. 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 Parent-child problem 08/01/2010 Attention deficit hyperactivity disorder (ADHD) 07/31/2010 Oppositional defiant disorder of childhood or ad olescence 07/31/2010 Resolved Problems Problem Noted Date Diagnosed Date Resolved Date Coffee ground emesis 07/03/2021 021 High anion gap metabolic acidosis 07/03/2021 07/04/2021 Nausea and vomiting in adult 07/04/2021 Encounters Date Type Department Care Team Description 08/11/2024 External Device Data ST[facility] ABSTRACTION Provider, Abstract from Last 3 Months Family History Medical History Relation Name Comments Healthy Mother Relation Name Status Comments Father Mother Alive Social History Tobacco Use Types Packs/Day Years Used Date Smoking Tobacco: Never Smokeless Tobacco: Never Alcohol Use Standard Drinks/Week Comments No 0 (1 standard drink = 0.6 oz pur e alcohol) Sex and Gender Information Value Date Recorded Sex Assigned at Not on file 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 Gender Identity Not on file Sexual Orientation Not on file Last Filed Vital Signs Vital Sign Reading Time Taken Comments Blood Pressure 121/76 09/23/2023 2:36 PM CDT Pulse 81 09/23/2023 2:36 PM CDT Temperature 35.9 C (96.6 F) 09/23/2023 2:36 PM CDT Respiratory Rate 14 09/23/2023 2:36 PM CDT Oxygen Saturation 97% 09/23/2023 2:36 PM CDT Inhaled Oxygen Concentration - - Weight 97.5 kg (215 lb) 09/23/2023 2:36 PM CDT Height 190.5 cm (6' 3 ) 09/23/2023 2:36 PM CDT Body Mass Index 26.87 09/23/2023 2:36 PM CDT Plan of Treatment Health Maintenance Due Date Last Done Comments DTAP/TDAP/TD VACCINES (1 - Tdap) 2016 HEPATITIS B VACCINES (1 of 3 - 19+ 3-dose series) 2016 INFLUENZA VACCINE (#1) 2024 HPV VACCINES Aged Out No longer eligi ble based on patient's age to complete this topic PNEUMOCOCCAL VACCINE 0-64 YEARS Aged Out No longer eligible based on patient's age to complete this topic Insurance RX [facility] [employer] (INTERNAL) [facility] BLUE ACCESS/TRUE BLUE PPO Advance Directives For more information, please contact: [phone] * Full Code (Latest Code Status on File) Date Activated Date Inactivated Comments 09/28/2021 11:44 AM 09/28/2021 3:33 PM * Full Code Date Activated Date Inactivated Comments 07/03/2021 6:00 PM 07/05/2021 6:57 PM * Full Code Date Activated Date Inactivated Comments 07/29/2010 5:23 PM 08/03/2010 7:04 PM Care Teams Pastry Artist Relationship Specialty Start Date End Date Reji Grant MD [address] [place] [id number] PCP - General Gastroenterology 09/28/21
--- OUTSIDE RECORDS SUMMARY | 2024-08-17 00:27 | XMS_ITS | Patient Health Record ---
Author Organization [facility] , Address [address] [place] [address] Care Team Providers Care Truck Striker Name Role Phone Reji Grant Primary Care Provider UnavailKenn Larios Unavailable [phone] ALLERGIES No Known Allergies REASON FOR REFERRAL No Information MEDICATIONS Medication SIG (Take, Route, Frequency, Duration) Notes Start Date End Date Status Keppra Active Xanax Active traMADol HCl Active Mirtazapine Active Lexapro Active PLAN OF TREATMENT No Information Insurance Providers Payer Name Payer Address Payer Phone Subscriber Number Group Number Insured Name Patient Relationship to Insured Coverage Start Date Coverage End Date [employer] [address] [place] [address] [id number] Mark Santo Self - patient is the insured 1 MEDICAL (GENERAL) HISTORY Medical History History ICD Code Seizures Neck and Back Pain Surgical History Surgery Date(Month/Year)
--- OUTSIDE RECORDS SUMMARY | 2024-08-17 00:27 | XMS_ITS | Patient Health Record ---
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 Name Role Phone KARIE PHILIPPE Primary Care Provider Milton Gaytan Unavailable [phone] Reason For Referral No Information Medications Medication SIG (Take, Route, Frequency, Duration) Notes Start Date End Date Status Keppra 500 MG 1 tablet Orally Twic e a day for 30 day(s) Active Amoxicillin 875 MG 1 tablet Orally ever y 12 hrs for 5 day(s) Not-Taking Xanax 0.5 MG 1 tablet Orally 2 pm Active Lexapro 20 MG 1 tablet Orally Once a day pm Active Hydrocodone-Acetaminophen Active Problems Problem Type SNOMED Code ICD Code Onset Dates Problem Status W/U Status Risk Notes Problem Lumbar spondylosis (435366727) Lumbar spondylosis (M47.816) Active confirmed Problem [id number] Acute strain of neck muscle, initial encounter (S16.1XXA) Active confirmed Plan Of Treatment No Information Insurance Providers Payer Name Payer Address Payer Phone Subscriber Number Group Number Insured Name Patient Relationship to Insured Coverage Start Date Coverage End Date [employer] PPO [address] [address] [place] [facility], [place] [id number] SantoMark Self - patient is the insured 0 0 Medical (General) History Medical History History ICD Code Seizures Surgical History Surgery Date(Month/Year) [place] teeth
[2024-08-17 06:20] VITALS: BP 111/73; PULSE 59; RESP 16; TEMP 35.8; O2SAT 98; BMI 24.8
--- NOTE | 2024-08-17 06:54 | WPDANESEPPF ---
Anes - Initial Pre Proc Eval Procedure: Operation Date: 08/17/24 07:30 Proposed Procedures p Colonoscopy - Jose Antonio Espinoza MD Date/Time: 08/17/24 06:54 Surgeon: Jose Antonio Espinoza MD Pre Op Diagnosis: Abnormal Wt Loss/ RLQP Patient Data Age: 29 Gender: M Height: 1.91 m Weight: 90.3 kg Last Vital Signs Temp 35.8 C L 08/17/24 06:20 Pulse 59 L 08/17/24 06:20 Resp 16 08/17/24 06:20 BP 111/73 08/17/24 06:20 Pulse Ox 98 08/17/24 06:20 O2 Del Method Room Air 08/17/24 06:20 Allergies Allergy/AdvReac Type Severity Reaction Status Date / Time Cat Dander Allergy Unknown Unknown Uncoded 08/17/24 06:25 MOLD Allergy Unknown Unknown Uncoded 08/17/24 06:25 Home Medications ?Medication ?Instructions ?Recorded ?Confirmed ?Type fluvoxamine 25 mg tablet 25 mg PO QHS 07/10/23 08/17/24 History gabapentin 300 mg capsule 300 mg PO DAILY 04/01/24 08/17/24 History divalproex 500 mg tablet,delayed 1,000 mg PO BID 06/19/24 08/17/24 History release Patient hx anesthesia problems: none Family hx anesthesia problems: none Results Review: All pre-operative results and documents have been reviewed as part of the pre-operative evaluation. [facility] Past Medical History Medical History Inflammatory arthritis Thrombocytopenia Functional burping disorder Positive MANOLO (antinuclear antibody) Elevated liver enzymes Functional dyspepsia Epigastric pain Marijuana use Obesity Hiatal hernia Hx of upper gastrointestinal hemorrhage GERD with esophagitis Anxiety Depression GERD (gastroesophageal reflux disease) Hx of seizure disorder Surgical History Surgical History History of placement of ear tubes Social History Social History Smoking status: Former smoker Tobacco type: cigarettes Alcohol intake: never Substance use: current Substance use type: marijuana Other substance usage details: 14g a week Do You Feel Safe in your Home?: Yes Lack of Transportation: No Lack of Food: Never True Current Housing: I Have Housing Concerned About Future Housing: No Difficulty Paying Gas/Electric Bills: No Difficulty Paying for Meds: No Currently Unemployed: No Education: Decline to Answer Difficulty w/ Childcare or Family Care: No Living arrangements: with family Gender identity (if verbalized by the patient): Male Spiritual care concerns: No Anes - Eval Final PreProcedure Day of Procedure 08/17/24 06:54 Patient weight: normal Heart: regular rate and rhythm Lungs: clear to auscultation Airway: Mallampati scale class II Neurological: alert and oriented Last oral intake: >/= 8 hours ASA classification: III Emergent: no Anesthetic plan: proceed Anesthesia type and monitoring: general GIVS and standard monitoring Results Review: All pre-operative results and documents have been reviewed as part of the pre-operative evaluation. Informed Consent: The patient's anesthetic plan and its attendant risks and benefits were discussed with the patient/family/POA. Questions were solicited and answers provided to the satisfaction of the patient/family/POA.
--- NOTE | 2024-08-17 07:05 | PM.HPGS ---
History of Present Illness History of Present Illness Consent: Risks, benefits, and alternatives have been discussed and questions answered. Patient agrees to proceed with procedure. Chief complaint: Abnormal Wt Loss/ RLQP Narrative: Mark Santo is a 29 year old male here for first colonoscopy, had weight loss Review of Systems Review of Systems: All systems reviewed & are unremarkable except as noted in HPI and below PMFSH Past Medical History Medical History Inflammatory arthritis Thrombocytopenia Functional burping disorder Positive MANOLO (antinuclear antibody) Elevated liver enzymes Functional dyspepsia Epigastric pain Marijuana use Obesity Hiatal hernia Hx of upper gastrointestinal hemorrhage GERD with esophagitis Anxiety Depression GERD (gastroesophageal reflux disease) Hx of seizure disorder Surgical History Surgical History History of placement of ear tubes Social History Social History Smoking status: Former smoker Tobacco type: cigarettes Alcohol intake: never Substance use: current Substance use type: marijuana Other substance usage details: 14g a week Do You Feel Safe in your Home?: Yes Lack of Transportation: No Lack of Food: Never True Current Housing: I Have Housing Concerned About Future Housing: No Difficulty Paying Gas/Electric Bills: No Difficulty Paying for Meds: No Currently Unemployed: No Education: Decline to Answer Difficulty w/ Childcare or Family Care: No Living arrangements: with family Gender identity (if verbalized by the patient): Male Spiritual care concerns: No Meds Home Medications and Allergies Home Medications ?Medication ?Instructions ?Recorded ?Confirmed ?Type fluvoxamine 25 mg tablet 25 mg PO QHS 07/10/23 08/17/24 History gabapentin 300 mg capsule 300 mg PO DAILY 04/01/24 08/17/24 History divalproex 500 mg tablet,delayed 1,000 mg PO BID 06/19/24 08/17/24 History release Allergies Allergy/AdvReac Type Severity Reaction Status Date / Time Cat Dander Allergy Unknown Unknown Uncoded 08/17/24 06:25 MOLD Allergy Unknown Unknown Uncoded 08/17/24 06:25 Vital Signs Vital Signs - 24 hr 08/17/24 06:20 Temperature 96.5 F L Pulse Rate 59 L Respiratory Rate 16 Blood Pressure 111/73 Pulse Oximetry 98 Oxygen Delivery Room Air Exam Const: General: comfortable and no acute distress HENMT: Face/Nose/Sinus: Normal nares present Eyes: General: appearance normal, both eyes and all related structures Neck: Neck: no JVD Resp: Auscultation: clear to auscultation bilaterally Cardio: Rate: regular rate Rhythm: regular rhythm GI: Inspection: non-distended GI Palp: Yes Soft to palpation Skin: General skin exam: normal color Neuro: General: gait normal Speech: normal speech Extrem: General: normal to inspection Psych: Mental Status: mental status grossly normal Assessment and Plan Assessment and plan (1) Abnormal weight loss: Code(s): R63.4 - Abnormal weight loss Status: Acute Assessment and Plan: colonoscopy
[2024-08-17] MEDS: LACTATED RINGERS 1,000 ML 150 ML IV CONT (07:06)
[2024-08-17 07:25] VITALS: BP 83/48; PULSE 50; RESP 17; O2SAT 100
[2024-08-17 07:35] VITALS: BP 91/43; PULSE 55; RESP 15; O2SAT 100
[2024-08-17 07:45] VITALS: BP 93/46; PULSE 68; RESP 19; O2SAT 100
== END 2024-08-17 07:58 | disposition home or self-care (01) ==
PROVIDERS: PCP Nurse Practitioner Family; Referring Provider Nurse Practitioner; Visit Provider Internal Medicine Gastroenterology
PROC: 0DJD8ZZ Inspection of Lower Intestinal Tract, Via Natural or Artificial Opening Endoscopic (ICD-10-PCS; CPT 45378; principal; 2024-08-17 07:30)
DX: K62.89 Other specified diseases of anus and rectum (principal); D69.6 Thrombocytopenia, unspecified; M06.4 Inflammatory polyarthropathy; K21.9 Gastro-esophageal reflux disease without esophagitis; F41.9 Anxiety disorder, unspecified; F32.A Depression, unspecified; G40.909 Epilepsy, unspecified, not intractable, without status epilepticus; F12.90 Cannabis use, unspecified, uncomplicated; Z98.890 Other specified postprocedural states; Z87.891 Personal history of nicotine dependence; Z87.19 Personal history of other diseases of the digestive system
CPT/HCPCS: 45380; 88305; J2003; J2704; J7120

== ENCOUNTER 2025-04-30 15:52 | Emergency (ER) | payer BC, SELFPAY ==
[2025-04-30 15:53] VITALS: BP 120/79; PULSE 92; RESP 18; TEMP 36.3; O2SAT 100
[2025-04-30 16:11] LABS: Hematocrit 43.7 % (42.0-52.0); Hemoglobin 14.3 g/dL (14.0-18.0); Immature Granulocyte Percent A 0.5 % (0-0.5); Lymphocytes Absolute Auto 1.35 K/mm3 (0.9-3.2); Mean Corpuscular HGB Conc 32.7 g/dl (32-36); Mean Corpuscular Hemoglobin 30.9 pg (26-34); Mean Corpuscular Volume 94.4 fl (80-100); Nucleated Red Blood Cells Absolute Auto 0.000 K/mm3 (0.0-0.012); Nucleated Red Blood Cells Perc 0.0 % (0.0-0.2); Platelet Count Result 237 k/mm3 (150-375); Red Blood Count 4.63 M/mm3 (4.6-6.20); White Blood Count 10.4 K/mm3 (4.5-10.0)
[2025-04-30 16:20] LABS: Alanine Aminotransferase 28 U/L (6-50); Albumin Level 4.9 g/dL (3.5-5.1); Alkaline Phosphatase 146 U/L (38-126); Anion Gap 11 mmol/L (4-12); Aspartate Amino Transferase 30 U/L (17-59); Bilirubin,Total 0.8 mg/dL (0.2-1.3); Blood Urea Nitrogen 16 mg/dL (9-20); Calcium 10.1 mg/dL (8.4-10.2); Carbon Dioxide 27 mmol/L (22-30); Chloride 102 mmol/L (98-107); Estimated CRCL calculation 102 ml/min; Estimated Glomerular Filt Rate > 60; Glucose 113 mg/dL (65-110); Lipase 61 U/L (23-300); Potassium 4.0 mmol/L (3.4-5.0); Sodium 140 mmol/L (137-145); Total Protein 8.3 g/dL (6.3-8.2)
[2025-04-30 16:40] LABS: Add Urine Microscopic? YES; Appearance Urine Clear (Clear); Glucose Urine UA Negative (Negative); Leukocyte Esterase Ur Trace LEU/UL (Negative); Nitrate Urine Negative (Negative); Non Pathogenic Casts 0-2; Specific Grav Ur 1.024 (1.001-1.035)
[2025-04-30] MEDS: SODIUM CHLORIDE 0.9% IV 1,000 ML 999 ML IV CONT ×2 (16:57→18:01)
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
[2025-04-30 17:39] VITALS: BP 91/56; PULSE 68; RESP 18; O2SAT 98
--- NOTE | 2025-04-30 18:00 | ECG_ITS ---
Test Date: 2025-04-30 18:11:30 Measurements Intervals [place] Rate: 73 P: 11 NC: 130 QRS: 73 QRSD: 101 T: 81 QT: 335 QTc: 371 Interpretive Statements SINUS RHYTHM NONSPECIFIC T-WAVE ABNORMALITY- HIGH LATERAL LEADS BASELINE ARTIFACT- I, II, III, AVR, AVL, AVF, V1 BORDERLINE ECG No previous ECG available for comparison Electronically Signed On 04-30-2025 20:53:33 CDT by Taz Deluna D.O.
[2025-04-30] MEDS: BELLADONNA ALK/PHENOB ELIX 10 ML, MAG HYDROX/ALUMINUM HYD/SIMETH 30 ML, LIDOCAINE 2% VI... PO (18:13)
== END 2025-04-30 19:08 | disposition home or self-care (01) ==
PROVIDERS: Emergency Medicine; Emergency Provider Emergency Medicine; PCP Nurse Practitioner Family
DX: E86.0 Dehydration (principal); G40.909 Epilepsy, unspecified, not intractable, without status epilepticus; M19.90 Unspecified osteoarthritis, unspecified site; K44.9 Diaphragmatic hernia without obstruction or gangrene; K21.00 Gastro-esophageal reflux disease with esophagitis, without bleeding; F41.9 Anxiety disorder, unspecified; F32.A Depression, unspecified; Z87.891 Personal history of nicotine dependence; Z79.899 Other long term (current) drug therapy; R94.31 Abnormal electrocardiogram [ECG] [EKG]
CPT/HCPCS: 36415; 80053; 81001; 83690; 85025; 93005; 96360; 96361; 99283; A9270; J7030